=== PATIENT | female | born 1965 | race Caucasian/White ===

== ENCOUNTER 2023-08-06 19:53 | Outpatient (CLI) | payer OTHER, SELFPAY | END 2023-08-06 19:54 | disposition home or self-care (01) | LOC: NFLDUCREF 19:54 | PROVIDERS: Visit Provider Nurse Practitioner | DX: R39.15 Urgency of urination (principal) | CPT/HCPCS: 87086 ==

== ENCOUNTER 2024-09-15 15:07 | Emergency (ER) | payer OTHER, SELFPAY ==
--- OUTSIDE RECORDS SUMMARY | 2024-09-15 15:10 | XMS_ITS | Encounter Summary ---
[facility] Organization [facility] Address [address], [place] [address] Care Team Providers Care Patcher Name Role Phone Marilia Merrill MD Primary Care Provider [phone] Encounter Details Date Type Department Care Team (Latest Contact Info) Description 08/05/2024 Orders Only HIM DEPARTMENT ProviderFerdinand [place] [address] Social History Tobacco Use Types Packs/Day Years Used Date Smoking Tobacco: Never Smokeless Tobacco: Never Alcohol Use Standard Drinks/Week Comments Yes 0 (1 standard drink = 0.6 oz pur e alcohol) weekly [facility] Utilities Answer Date Recorded In the past 12 months has e Etacts, gas, oil, or water [place] threatened to shut off services in your home? No 07/13/2024 Humiliation, Afraid, Rape, and Kick questionnair e Answer Date Recorded Within the last year, have y ou been afraid of your partner or ex-partner? No 07/13/2024 Within the last year, have y ou been humiliated or emotionally abused in other ways by your partner or ex-partner? No Within the last year, have y ou been kicked, hit, slapped, or otherwise physically hurt by your partner or ex-partner? No 07/13/2024 Within the last year, have y ou been raped or forced to have any kind of sexual activity by your partner or ex-partner? No 07/13/2024 PHQ-2 Answer Date Recorded PHQ-2 Score 1 11/15/2022 Hunger Vital Sign Answer Date Recorded Within the past 12 months, y ou worried that your food would run out before you got the money to buy more. Never true 07/13/20 24 Within the past 12 months, t he food you bought just didn't last and you didn't have money to get more. Never true 07/13/2024 PRAPARE - Transportation Answer Date Re corded In the past 12 months, has l ack of transportation kept you from medical appointments or from getting medications? No 06/28 In the past 12 months, has l ack of transportation kept you from meetings, work, or from getting things needed for daily living? No 07/13/2024 Housing Stability Vital Sign Answer Tha e Recorded In the last 12 months, was t here a time when you were not able to pay the mortgage or rent on time? No 07/13/2024 In the past 12 months, how m any times have you moved where you were living? 1 07/13/2024 At any time in the past [address] [facility], were you homeless or living in a assisted (including now)? No 07/13/2024 Comments No Sex and Gender Information Value Date Recorded Sex Assigned at Not on file Legal Sex Female 5:05 AM CDT Gender Identity Not on file Sexual Orientation Not on file documented as of this encounter Plan of Treatment Upcoming Encounters Date Type Department Care Team (Late st Contact Info) Description 09/22/2024 8:40 AM COSTUME DRAPER Appointment [facility] [address] [place] [address] Pelon Lira MD [address] [facility] [place] [address] 09/23/2024 1:00 PM COSTUME DRAPER Appointment [facility] [address] [place] [address]. [place] [address] Nasima Early, CASH APPLICATION REPRESENTATIVE, PRODUCT MGMT DEV MANAGER [address] [place], [place] [id number] documented as of this encounter Goals Goal Patient Goal Type Associated Problems Recent Progress Patient-Stated? Author Right Knee Replacement Care Plan ET PROE RIGHT KNEE No Nila Sawyer documented as of this encounter Procedures Procedure Name Priority Date/Time Associated Diagnosis Comments PULMONARY TEST MI 08/05/2024 documented in this encounter Results * PULMONARY TEST MI (08/05/2024) us Interface Provider DUMMY/OTHER/AR Final Resu lt documented in this encounter Visit Diagnoses Not on filedocumented in this encounter Additional Health Concerns Active Problems Noted Date Diagnosed Date ET PROE RIGHT KNEE 01/14/2023 ET PROE SHELL PROBLEM TEMPLATE 05/27/2024 documented as of this encounter Care Teams Patcher Relationship Specialty Start Date End Date Marilia Merrill MD [address] [place] [address] PCP - General Family Practice 07/13/24 documented as of this encounter
--- OUTSIDE RECORDS SUMMARY | 2024-09-15 15:10 | XMS_ITS | Clinical Summary ---
Author Organization [facility] Address [address] [place] [address] Care Team Providers Care Supervisor Sintering Plant Name Role Phone Marilia Merrill MD Primary Care Provider Allergies Active Allergy Reactions Criticality Noted Date Comments Tetanus And Diphtheria Toxoids, Adsorbed, Adult Medium 01/08/2011 Severe pain and swelling for several weeks Medications cetirizine (ZYRTEC) 10 mg tabletIndication s:Allergic rhinitis, cause unspecified Take 1 tablet by mouth once daily if needed. 30 tablet 5 7 Active CPAPIndications: Obstructive sleep apnea CPAP machine for home use at pressure 5-20 cm, nasal mask x1/3month with nasal cushion x2/mo 1 Device 11 0 Active albuterol HFA (ProAir HFA) 90 mcg/actuation inhalerIndicatio ns:Asthma, unspecified asthma severity, unspecified whether complicated, unspecified whether persistent Inhale 1-2 Puffs by mouth every 4 hours if needed for Shortness of Breath 1st choice. 3 Each 1 4 Active lisinopriL (PRINIVIL; ZESTRIL) 10 mg tabletIndication s:HTN (hypertension) TAKE ONE TABLET BY MOUTH EVERY DAY 90 Tablet 3 4 Active CPAPIndications: HUI (obstructive sleep apnea) Travel Auto-CPAP machine for home use at pressure: 5-20 cm 1 Each 11 4 Active traZODone (DESYREL) 150 mg tabletIndication s:Insomnia, idiopathic Take 1 Tablet (150 mg) by mouth at bedtime. 90 Tablet 4 4 Active buPROPion (WELLBUTRIN XL) 300 mg Extended-Release tabletIndication s:Anxiety and depression Take 1 Tablet (300 mg) by mouth once daily in the morning. 90 Tablet 3 4 Active fluticasone (50 mcg per actuation) nasal solution (FLONASE)Indicat ions:Non-seasona l allergic rhinitis due to other allergic trigger Inhale 1 [place] in both nostrils once daily. 18.2 mL 5 4 Active Active Problems Problem Noted Date Diagnosed Date HUI (obstructive sleep apnea) 02/14/2017 Osteoarthritis of cervical spine 02/23/2014 Overview (02/23/2014): Bilateral facet joints - diffuse DDD (degenerative disc disease), cervical 2013 Overview (02/23/2014): C4-5 and C5-6 levels Sesamoiditis 08/10/2013 Other atopic dermatitis and related conditions 0 03/05/2007 Unspecified asthma(493.90) 03/05/2007 Insomnia, unspecified 03/05/2007 HTN (hypertension) Encounters Date Type Department Care Team Description 09/07/2024 Refill [facility] [address] [place] [address] Marilia Merrill MD Refill Request (Trazodone) 07/08/2024 7:25 AM TRAILHEAD CONSTRUCTION WORKER Preop Visit [facility] [address] [place] [address] Marilia Merrill MD Pre-Op Exam (07/13/24) 07/07/2024 Travel from Last 3 Months Immunizations Name Administration Dates Next Due COVID-19 vaccine (Moderna 100mcg/0.5mL) PF, MDV 10/19/2020,09/21/2020 Hepatitis A (Adult) 11/11/2020,09/25/2017 Influenza, IIV4 05/15/2023,05/11/2020 Influenza, IIV4 (=>6mos) MDV 05/17/2021 Td (Age >=7 Years) 07/11/1999 Typhoid (injectable) 11/11/2020 Zoster (Shingrix-RZV, recombinant) 11/11/2020, Family History Medical History Relation Name Comments Hypertension Father Kidney failure Father dialysis Other Father c diff Polycystic kidney disease Father Arthritis Mother rheumatoid Relation Name Status Comments Father Mother Social History Tobacco Use Types Packs/Day Years Used Date Smoking Tobacco: Never Smokeless Tobacco: Never Tobacco Cessation:Counseling Given: Not Answered Alcohol Use Standard Drinks/Week Comments Yes 0 (1 standard drink = 0.6 oz pur e alcohol) 1 glass wine 3-4 times weekly PHQ-2 Answer Date Recorded PHQ-2 TOTAL SCORE 2 08/16/2023 Social Connections Answer Date Recorded Do you often feel lonely or isolated from those around you? 0 08/16/2023 Financial Resource Strain Answer Date R ecorded Difficulty of Paying Living Expenses 3 08/16/2023 Difficulty of Paying Living Expenses Not on file 08/16/2023 Food Insecurity Answer Date Recorded Do you worry your food will run out before you are able to buy more? 1 08/16/2023 Transportation Needs Answer Date Record ed Does lack of transportation keep you from medica l appointments? 1 08/16/2023 Does lack of transportation keep you from work, meetings or getting things that you need? 1 08/16/2023 Housing Stability Answer Date Recorded What is your housing situation today? 1 08/16/2023 Utilities Answer Date Recorded Do you have trouble paying f or utilities (for example, heat, electricity, water, phone)? 1 08/16/2023 Comments No Sex and Gender Information Value Date Recorded Sex Assigned at Female 05/21/2020 12:53 PM CDT Legal Sex Female 6:11 AM TRAILHEAD CONSTRUCTION WORKER Gender Identity Female 05/21/2020 12:53 PM CDT Sexual Orientation Straight 05/21/2020 12 :57 PM CDT Occupation Industry Job Start Date Job End Date Teacher Not on file Not on file Not on file Obstetrics History Para Term AB IAB SAB Ectopic Multiple Livin g Live Births 2 2 2 Date Outcome GA Total Labor Labor/2nd/3rd Weight Sex Type Anes PTL Vika A1 A5 Name Clin Living Living Last Filed Vital Signs Vital Sign Reading Time Taken Comments Blood Pressure 102/60 07/08/2024 7:32 AM TRAILHEAD CONSTRUCTION WORKER Pulse 77 07/08/2024 7:32 AM TRAILHEAD CONSTRUCTION WORKER Temperature 36.3 C (97.4 F) 07/08/2024 7:32 AM TRAILHEAD CONSTRUCTION WORKER Respiratory Rate 16 02/10/2024 12:36 PM CDT Oxygen Saturation 98% 07/08/2024 7:32 AM TRAILHEAD CONSTRUCTION WORKER Inhaled Oxygen Concentration - - Weight 84.8 kg (187 lb) 07/08/2024 7:32 AM TRAILHEAD CONSTRUCTION WORKER Height 162.6 cm (5' 4) 07/08/2024 7:32 AM TRAILHEAD CONSTRUCTION WORKER Body Mass Index 32.1 07/08/2024 7:32 AM TRAILHEAD CONSTRUCTION WORKER Plan of Treatment Health Maintenance Due Date Last Done Comments HIV for age 15-65 1982 Hepatitis C screening for ag e 18-79 1985 Pneumococcal series for age 50+ (1 of 1 - PCV) 2017 Pap test for age 21-65 02/26/2019 6 (Completed outside of [facility]), 11/26/2009 Tetanus booster 01/08/2021 01/08/2011 (Decl ined), 07/11/1999 COVID-19 vaccine series ( season) 2024 05/15/2023, 10/19/2020, 09/21/2020 Influenza for age 50-64 03/29/2024 05/15/20 23, 05/17/2021, 05/11/2020 Depression screening for age 12+ 08/17/2024 08/17/2023, 08/16/2023, 02/01/2022, Additional history exists Mammogram for age 45-75 10/01/2024 10/02/19 24, 08/23/2022, 12/28/2015 (Completed outside of [facility]), Additional history exists Fecal testing non-DNA (FIT,FOBT,iFOBT) for age 45-75 10/06/2024 10/07/2023, 08/22/2021, 12/25/2018 BMI (ht and wt on same day) for age 18+ 07/08/2025 07/08/2024, 06/12/2024, 02/10/2024, Additional history exists Lipids for age 45-75 08/16/2028 08/16/2023, 10/24/2016, 01/19/2013, Additional history exists Zoster (shingles) series for age 50+ Completed 11/11/2020, 05/11/2020 Medical Devices Implanted Type Area Recreational Therapy Aide Device Identifier Shelf Expiration Date Model / Serial / Lot Bone Matrix 1cc Dbx Putty Dbm - [id number] Implanted:Qty : 1 on 05/18/2014 by Gabe Isabel MD at [facility] N/A: Cervical Vertebrae Musculoskeletal Transplant 02/13/2016 [id number]# / / [id number] - [id number] Implanted:Qty : 1 on 05/18/2014 by Gabe Isabel MD at [facility] N/A: Cervical Vertebrae 03/28/[id number] / / Description:8MM H X 16MM W X 14MM D MEDITECH SPINE, TALOS Mcsv-40-14 - [id number] Implanted:Qty : 4 on 05/18/2014 by Gabe Isabel MD at [facility] N/A: Cervical Vertebrae CSV-40-14 / / CSV-40-14 Description:14MM X 4.0 VARIA BLE BONE SCREWS MEDITECH [id number] - [id number] Implanted:Qty : 1 on 05/18/2014 by Gabe Isabel MD at [facility] N/A: Cervical Vertebrae [id number] / / [id number] Description:16MM PIRANNA CER VICAL PLATE MEDITECH Procedures Procedure Name Priority Date/Time Associated Diagnosis Comments CBC W PLT NO DIFF Routine 07/08/2024 7:5 2 AM TRAILHEAD CONSTRUCTION WORKER Pre-op evaluation BASIC METABOLIC PANEL Routine 07/08/2024 7:52 AM TRAILHEAD CONSTRUCTION WORKER Pre-op evaluation OCCULT BLOOD IFOBT STOOL Routine 10/07/2023 11:42 AM CDT Screening for colon cancer XR MAMMO MARGARITA BILAT SCREEN Routine 10/02/2023 4:33 PM TRAILHEAD CONSTRUCTION WORKER Visit for screening mammogram LIPID PANEL W REFLEX MEASURED LDL Routine 08/16/2023 8:14 AM TRAILHEAD CONSTRUCTION WORKER Screening for lipid disorders from Last 3 Months or Most Recently Relevant to Health Maintenance Results * CBC W PLT NO DIFF (07/08/2024 7:52 AM TRAILHEAD CONSTRUCTION WORKER) WHITE BLOOD CELL COUNT 8.3 3.8 - 10.8 Thousand/u L [facility] RED BLOOD CELL COUNT 4.34 3.80 - 5.10 Million/uL [facility] HEMOGLOBIN 12.4 11.7 - 15.5 g/dL [facility] HEMATOCRIT 37.9 35.0 - 45.0 % [facility] MCV 87.3 80.0 - 100.0 fL [facility] MCH 28.6 27.0 - 33.0 pg [facility] MCHC 32.7 32.0 - 36.0 g/dL [facility] Comment: For adults, a slight decrease in the calculated MCHC value (in the range of 30 to 32 g/dL) is most likely not clinically significant; however, it should be interpreted with caution in correlation with other red cell parameters and the patient's clinical condition. RDW 12.5 11.0 - 15.0 % [facility] PLATELET COUNT 336 140 - 400 Thousand/u L [facility] MPV 10.6 7.5 - 12.5 fL [facility] Blood BLOOD SPECIMEN / Unknown 07/08/2024 7:52 AM TRAILHEAD CONSTRUCTION WORKER 07/08/2024 7:53 AM TRAILHEAD CONSTRUCTION WORKER us Marilia Merrill MD HEMATOLOGY Final R esult [facility] [address] [place] [address], [facility] [address] [place] [address] * (ABNORMAL) BASIC METABOLIC PANEL (07/08/2024 7:52 AM TRAILHEAD CONSTRUCTION WORKER) Pathologist [facility] GLUCOSE 107(H) 65 - 99 mg/dL [facility] Comment: Fasting reference interval For someone without known diabetes, a glucose value between 100 and 125 mg/dL is consistent with prediabetes and should be confirmed with a follow-up test. UREA NITROGEN (BUN) 21 7 - 25 mg/dL [facility] CREATININE 0.89 0.50 - 1.03 mg/dL [facility] EGFR 76 > OR = 60 mL/min/1. 73m2 [facility] BUN/CREATININE RATIO SEE NOTE: 6 - 22 (calc) [facility] Comment: Not Reported: BUN and Creatinine are within reference range. SODIUM 139 135 - 146 mmol/L [facility] POTASSIUM 4.4 3.5 - 5.3 mmol/L [facility] CHLORIDE 101 98 - 110 mmol/L [facility] CARBON DIOXIDE 28 20 - 32 mmol/L [facility] ELECTROLYTE BALANCE 10 7 - 17 mmol/L (calc) [facility] CALCIUM 9.4 8.6 - 10.4 mg/dL [facility] Blood BLOOD SPECIMEN / Unknown 07/08/2024 7:52 AM TRAILHEAD CONSTRUCTION WORKER 07/08/2024 7:53 AM TRAILHEAD CONSTRUCTION WORKER Marilia Merrill MD CHEMISTRY Final R esult [facility] [address] [place] [address], [facility] [address] [place] [address] * OCCULT BLOOD IFOBT STOOL [[id number]] (10/07/2023 11:42 AM CDT) STOOL BLOOD ,IFOBT Negative Negative 10/11/2023 10:24 AM CDT [facility] Stool STOOL SPECIMEN / Unknown Non-Blood / Unknown 10/07/2023 11:42 AM CDT 10/10/2023 11:42 AM CDT Marilia Merrill MD LABORATORY Final R esult [facility] [address] [place] [address], [place] [phone] * XR MAMMO MARGARITA BILAT SCREEN (10/02/2023 4:33 PM TRAILHEAD CONSTRUCTION WORKER) Anatomical Region Laterality Modality BREASTS, Breast Left, Breast Right Bilateral Mammography Impressions 10/03/2023 3:11 PM TRAILHEAD CONSTRUCTION WORKER There is no radiographic evidence for malignancy. Recommend annual mammograms. MAMMOGRAM ASSESSMENT: ACR 1 Negative PATIENTS: You will also receive a letter with your examination results in an easy to read format. If you have questions about your results, please contact your referring provider. Narrative 10/03/2023 3:11 PM TRAILHEAD CONSTRUCTION WORKER For Patients: As a result of the Century Cures Act, medical imaging exams and procedure reports are released immediately into your electronic medical record. You may view this report before your referring provider. If you have questions, please contact your health care provider. XR MAMMO MARGARITA BILAT SCREEN [[id number]] CLINICAL HISTORY: This is an asymptomatic 58 y.o. patient. INDICATION FOR EXAM: Mammogram Screening. TECHNIQUE: CC & MLO views were obtained. This study was evaluated with the assistance of Computer-Aided Detection. Breast Tomosynthesis was used in interpretation. COMPARISON FILM: Priors not available at the time of this report. FINDINGS: The breasts are heterogeneously dense, which may obscure small masses. There are no dominant masses, suspicious micro calcifications or areas of architectural distortion. Marilia Merrill MD MAMMO Final R esult * LIPID PANEL W REFLEX MEASURED LDL [[id number]] (08/16/2023 8:14 AM TRAILHEAD CONSTRUCTION WORKER) CHOLESTEROL,TOTAL 195 100 - 199 mg/dL 08/16/2023 7:21 PM TRAILHEAD CONSTRUCTION WORKER [facility] Comment: Cholesterol, Total Reference Ranges Desirable <200 mg/dL Borderline 200-239 mg/dL High >=240 mg/dL TRIGLYCERIDES 64 <150 mg/dL 08/16/2023 7:21 PM TRAILHEAD CONSTRUCTION WORKER [facility] HDL CHOLESTEROL 81 >40 mg/dL 7:21 PM TRAILHEAD CONSTRUCTION WORKER [facility] NON-HDL CHOLESTEROL 114 <145 mg/dl 08/16/2023 7:21 PM TRAILHEAD CONSTRUCTION WORKER [facility] CHOL/HDL RATIO 2.41 <4.50 08/16/2023 7:21 PM TRAILHEAD CONSTRUCTION WORKER [facility] LDL CHOLESTEROL 101 <=130 mg/dL 08/16/2023 7:21 PM TRAILHEAD CONSTRUCTION WORKER [facility] VLDL CHOLESTEROL 13 <=30 mg/dL 08/16/2023 7:21 PM TRAILHEAD CONSTRUCTION WORKER [facility] PROVIDER ORDERED STATUS RANDOM 08/16/2023 7:21 PM [facility] Blood BLOOD SPECIMEN / Unknown Venipuncture / Unknown 08/16/2023 8:14 AM TRAILHEAD CONSTRUCTION WORKER 08/16/2023 8:26 AM TRAILHEAD CONSTRUCTION WORKER us Marilia Merrill MD CHEMISTRY Final R esult [facility] [address] [place] [id number], from Last 3 Months or Most Recently Relevant to Health Maintenance Insurance [place]ERT[place] [id number] Advance Directives * Full Code (Latest Code Status on File) Date Activated Date Inactivated Comments 05/18/2014 4:29 PM 05/19/2014 6:10 PM * Full Code Date Activated Date Inactivated Comments 05/18/2014 12:49 PM 05/18/2014 4:29 PM Care Teams Supervisor Sintering Plant Relationship Specialty Start Date End Date Marilia Merrill MD [address] [place] [address] PCP - General Family Practice 11/25/19
--- OUTSIDE RECORDS SUMMARY | 2024-09-15 15:10 | XMS_ITS | Encounter Summary ---
Author Organization [facility] Address [address], [place] [address] Care Team Providers Care Hobbing Press Operator Name Role Phone Marilia Merrill MD Primary Care Provider [phone] Encounter Details Date Type Department Care Team (Late st Contact Info) Description 11/12/2014 Orders Only [facility] [address] [place] [address] Donald Alvarez DPM [address] [facility] [place] [id number] Nonunion of joint fusion Social History Tobacco Use Types Packs/Day Years Used Date Smoking Tobacco: Never Assessed Comments Unknown Sex and Gender Information Value Date Recorded Sex Assigned at Not on file Legal Sex Female 5:05 AM CDT Gender Identity Not on file Sexual Orientation Not on file documented as of this encounter Plan of Treatment Upcoming Encounters Date Type Department Care Team (Late st Contact Info) Description 09/22/2024 8:40 AM FINANCIAL SPECIALIST Appointment [facility] [address] [place] [address] Pelon Lira MD [address] [facility] [address] [place] [id number] 09/23/2024 1:00 PM FINANCIAL SPECIALIST Appointment Special[facility] [address] [facility] [place], [place] [id number] Nasima Early, APPRENTICE STYLIST, CLAM DIGGER [address] [place] [address] documented as of this encounter Visit Diagnoses Diagnosis Nonunion of joint fusion documented in this encounter Care Teams Hobbing Press Operator Relationship Specialty Start Date End Date Marilia Merrill MD [address] [place] [address] PCP - General Family Practice 07/13/24 documented as of this encounter
--- OUTSIDE RECORDS SUMMARY | 2024-09-15 15:10 | XMS_ITS | Encounter Summary ---
[facility] Address [address] [address] Care Team Providers Care Rate Marker Name Role Phone Marilia Merrill MD Primary Care Provider [phone] Reason for Visit * Reason Comments Follow-up INSPIRE Encounter Details Date Type Department Care Team (Late st Contact Info) Description 08/05/2024 11:00 AM ROOFING LAYER Office Visit [facility] [address] [place] [address]. [place], [place] [id number] Nasima Early, BUNDLE SHAKER, FILLING OPERATOR [address] [place] [address] HUI (obstructive sleep apnea) (Primary Dx); S/P insertion of hypoglossal nerve stimulator Social History Tobacco Use Types Packs/Day Years Used Date Smoking Tobacco: Never Smokeless Tobacco: Never Alcohol Use Standard Drinks/Week Comments Yes 0 (1 standard drink = 0.6 oz pur e alcohol) weekly [facility] Utilities Answer Date Recorded In the past 12 months has e electric, gas, oil, or water [employer] threatened to shut off services in your [...] any time in the past 12 m [facility], were you homeless or living in a residential (including now)? No 07/13/2024 Comments No Sex and Gender Information Value Date Recorded Sex Assigned at Not on file Legal Sex Female 5:05 AM CDT Gender Identity Not on file Sexual Orientation Not on file documented as of this encounter Last Filed Vital Signs Vital Sign Reading Time Taken Comments Blood Pressure - - Pulse 68 08/05/2024 10:52 AM ROOFING LAYER Temperature 36.4 C (97.6 F) 08/05/2024 10:52 AM ROOFING LAYER Respiratory Rate - - Oxygen Saturation 97% 08/05/2024 10:52 AM ROOFING LAYER Inhaled Oxygen Concentration - - Weight - - Height 165.1 cm (5' 5) 08/05/2024 10:52 AM ROOFING LAYER Body Mass Index - - documented in this encounter Patient Instructions * Patient Instructions* Nasima Early APRN, CNP - 08/05/2024 11:00 AM ROOFING LAYER Use INSPIRE nightly all night. Start at level 2 tonight. If needed can go down for few days and then go up again. Remote- 0.6-1.6. go up weekly if you can Evisit 2 weeks to check in. Then will see you back in 6-8 weeks for interrogation of device Nasima Early APRN, CNP ING LAYER ING LAYER documented in this encounter Progress Notes * Nasima Early APRN, CNP - 08/05/2024 11:00 AM CST CHIEF COMPLAINT: Deann Bajwa is a 59 y.o. old female who here for activation of INSPIRE therapy to treat sleep apnea. S: HISTORY OF THE PRESENT ILLNESS: Pt new to me. Here for activation of hypoglossal nerve stimulator as alt to treat sleep apnea. Here with her friend as she not able to drive, following knee surgery. Pt new to me. HTN, asthma, other atopic dermatitis hx of long standing sleep apnea, snoring. She believes she has moderate sleep apnea. She has been using CPAP since then but has really struggled with it the last few years. She does seem to fall asleep with it initially but it will wake her up in the middle of the night. She finds it uncomfortable in the mask may have moved around her face. She then has difficulty getting back to sleep if she keeps it on and adjusts it. Had septoplasty in past. Currently using, does not want to wear anymore, and could not get mask to fit right, and lines on her face. Inspire implant placed 06/17/[address] Ramos. No complaints of swallowing, talking, or tongue discomfort. Ess today 04/21. Been wearing her PAP machine. Patient Active Problem List Diagnosis HTN (hypertension) (HRC) HUI (obstructive sleep apnea) Other atopic dermatitis and related conditions Asthma (HRC) Primary osteoarthritis of right knee Failed total knee arthroplasty (HRC) Insomnia, unspecified DDD (degenerative disc disease), cervical (HRC) Status post revision of total knee, right S/P revision of total knee, right MEDS: Current Outpatient Medications Medication Sig Dispense Refill acetaminophen (TYLENOL) 500 MG tablet Take 2 Tablets (1,000 mg) by mouth three times a day. 24 hourlimit of acetaminophen (TYLENOL) is 4000mg. Indications: Pain 100 Tablet 0 ALBUterol sulfate HFA 108 (90 BASE) MCG/ACT inhaler Inhale 2 Puffs every 6 hours as needed for Wheezing (Inhale 2 puffs every 6 hours as needed for Wheezing.). aspirin EC 81 MG enteric coated tablet Take 2 Tablets (162 mg) by mouth daily for 42 days. If on previous aspirin, resume previous aspirin dosing after 42 days. Indications: thrombosis prevention following orthopedic surgery 84 Tablet 0 buPROPion (WELLBUTRIN XL) 300 MG 24 hour release tablet Take 1 Tablet (300 mg) by mouth daily. lisinopril (ZESTRIL) 10 MG tablet Take 1 Tablet (10 mg) by mouth daily. Check your blood pressure prior to taking. Hold medication for systolic (top number) under 130. oxyCODONE (ROXICODONE) 5 MG immediate release tablet Take 1-2 Tablets (5-10 mg) by mouth every 4 hours as needed for Pain. Take 1 tablet for pain rated at 4-7. Take 2 tablets for pain rated 8-10. Indications: Moderate to Moderately Severe Pain 25 Tablet 0 senna (SENOKOT) 8.6 MG tablet Take 2 Tablets by mouth daily at bedtime. Take while on narcotics. Hold for loose stools. Indications: Constipation 60 Tablet 0 traZODone (DESYREL) 150 MG tablet Take 1 Tablet (150 mg) by mouth daily at bedtime. No current facility-administered medications for this visit. O: Results of vital signs today have been reviewed. Pulse 68 Temp 97.6 ??F (36.4 ??C) (Tympanic) Ht 5' 5 (1.651 m) SpO2 97% BMI 31.02 kg/m?? General: NAD, alert and oriented. Pt ambulating on crutches 08/05/2024 Incision Check: All two incisions were inspected. No evidence of infection. Functional Tongue Exam: Normal tongue motion. No evidence of tongue deviation, weakness, atrophy, hypertrophy or fasciculations. No difficulty with swallowing or speech. Home Sleep Test (HST) Interpretation Date of Interpretation: 01/25/2024 BMI: Estimated body mass index is 29.12 kg/m?? as calculated from the following: Height as of this encounter: 5' 5 (1.651 m). Weight as of this encounter: 175 lb (79.4 kg). [place] Score: Neck Circumference: Device Name/Type: Carefusion NOX-T3 (Type III) Hypopnea Definition:AASM Rule: 1A Technical Quality: 96 % This home sleep test was performed as a/an Diagnostic study (unknown) a sleep partner in bed. The total recording time was 505.1 minutes. Snoring was reported as moderately loud, continuous Respiratory Events: Obstructive Apneas: 288 Central Apneas: 16 Mixed Apneas: 2 Hypopneas: 129 Overall RDI: 51.7 Non-Supine RDI: Supine RDI: 78.2 Oxygen Desaturations: Lowest O2 saturation was 84 % Total Sleep Time SpO2 was </= 88% was 28.7 minutes. Positional Data: % Time Supine: 34.6 % % Time Non-Supine: 65.4 % EKG: No significant cardiac arrhythmias were noted Impression: This study indicates severe obstructive sleep apnea. Recommendations: Consider a trial of Auto CPAP or a formal titration study to establish effectiveness of PAP therapy. Would suggest optimizing sleep hygiene measures, especially avoiding alcohol and sedatives. Avoiding sleep deprivation would also be beneficial. The patient should avoid dangers of driving while excessively drowsy. Weight management if indicated. I attest that I have conducted an epoch by epoch review of all of the raw data for this sleep study. A/P #1 Severe obstructive sleep apnea ( ahi-51.7). #2 BMI 31, obesity #3 hypoglossal nerve stimulator. #4 knee discomfort, s/p knee surgery Pt been treating apnea, with PAP therapy. Activated INSPIRE therapy today. Inspire therapy how works and what to expect outlined for her today. Sensation Threshold (ST): 0.6 volts Functional Threshold (FT): 0.7 volts Tongue Motion Phenotype at FT: Bilateral Protrusion (BP) Final Amplitude: 0.7 volts Patient Control Lower Limit: 0.6 volts Patient Control Upper Limit: 1.6 volts Sensor Waveform: The sensor waveform showed both upward and downward deflections associated with the patient's breathing pattern. Other Programming: A, 90/33 30 min start, 15 min pause, 9 sleep time Patient Instructions: 1. The patient was given an Inspire sleep remote and a patient manual. 2. The patient was educated on proper use of the patient sleep remote. The patient demonstrated competency with the remote and was given a quick guide and access to an instructional video. 3. The patient was instructed to use Inspire all-night, every-night. 4. The patient was instructed to increase stimulation amplitude 1 step (0.1 volts) every week untilreaching the maximum level or until stimulation becomes uncomfortable. 5. If stimulation becomes uncomfortable, the patient was instructed to decrease the stimulation amplitude and try increasing it again in 2-3 nights. Answered questions, pamphlet and literature has been given to her. Good sleep habits. See AVS for additional patient instructions reviewed during visit. RTC in 6-8 weeks, to interrogate device. Will do check in in approx 2 weeks via evisit Spent 90 min gathering data, activating INSPIRE, education and coordinating cares. Nasima Early APRN, CNP ING LAYER documented in this encounter Plan of Treatment Upcoming Encounters Date Type Department Care Team (Late st Contact Info) Description 09/22/2024 8:40 AM ROOFING LAYER Appointment [facility] [address] [place] [address] Pelon Lira MD [address] [place] [address] 09/23/2024 1:00 PM ROOFING LAYER [facility]ment [facility] [address] [place] [address]. [place], [place] [phone] Nasima Early APRN, CNP [address] [place] [id number] documented as of this encounter Goals Goal Patient Goal Type Associated Problems Recent Progress Patient-Stated? Author Right Knee Replacement Care Plan ET PROE RIGHT KNEE No Nila Sawyer documented as of this encounter Visit Diagnoses Diagnosis HUI (obstructive sleep apnea)- Primary Obstructive sleep apnea (adult) (pediatric) S/P insertion of hypoglossal nerve stimulator documented in this encounter Additional Health Concerns Active Problems Noted Date Diagnosed Date ET PROE RIGHT KNEE 01/14/2023 ET PROE SHELL PROBLEM TEMPLATE 05/27/2024 documented as of this encounter Care Teams Rate Marker Relationship Specialty Start Date End Date Marilia Merrill MD [address] [place] [address] PCP - General Family Practice 07/13/24 documented as of this encounter
--- OUTSIDE RECORDS SUMMARY | 2024-09-15 15:10 | XMS_ITS | Encounter Summary ---
Author Organization [facility] Address [address], [place] [address] Care Team Providers Care Patent Clerk Name Role Phone Marilia Merrill MD Primary Care Provider [phone] Encounter Details Date Type Department Care Team (Late st Contact Info) Description 11/03/2015 Notes/Orders [facility] [address] [place] [id number] Donald Alvarez DPM [address] [facility] [place] [id number] Social History Tobacco Use Types Packs/Day Years [...] st Contact Info) Description 09/22/2024 8:40 AM GOLF CART REPAIRER Appointment [facility] [address] [place] [address] Pelon Lira MD [address] [facility] [place] [id number] 09/23/2024 1:00 PM GOLF CART REPAIRER [facility] [address] [place] [address]. [place], [place] [phone] Nasima Early, BUSINESS SUPPORT, GUIDE DOG INSTRUCTOR [address] [place] [address] documented as of this encounter Visit Diagnoses Not on filedocumented in this encounter Care Teams Patent Clerk Relationship Specialty Start Date End Date Marilia Merrill MD [address] [place] [address] PCP - General Family Practice 07/13/24 documented as of this encounter
--- OUTSIDE RECORDS SUMMARY | 2024-09-15 15:10 | XMS_ITS | Encounter Summary ---
Author Organization [facility] Address [address], [place] [address] Care Team Providers Care Manager Practice Name Role Phone Marilia Merrill MD Primary Care Provider [phone] Encounter Details Date Type Department Care Team (Late st Contact Info) Description 11/10/2015 Orders Only [facility] [address] [place] [id number] Donald Alvarez DPM [address] [facility] [place] [id number] Social History Tobacco Use Types Packs/Day Years [...] st Contact Info) Description 09/22/2024 8:40 AM LINEMAN Appointment [facility] [address] [place] [address] Pelon Lira MD [address] [facility] [place] [id number] 09/23/2024 1:00 PM LINEMAN [facility]ment [facility] [address] [facility] [place] [address] Nasima Early, ADVERTISING PRODUCTION MANAGER, MARKETING INTERN [address] [place] [address] documented as of this encounter Visit Diagnoses Not on filedocumented in this encounter Care Teams Manager Practice Relationship Specialty Start Date End Date Marilia Merrill MD [address] [place] [address] PCP - General Family Practice 07/13/24 documented as of this encounter
--- OUTSIDE RECORDS SUMMARY | 2024-09-15 15:10 | XMS_ITS | Clinical Summary ---
Author Organization [facility] Address [address], [place] [address] Care Team Providers Care Health Information Technician Name Role Phone Marilia Merrill MD Primary Care Provider [phone] Source Comments You are receiving this document as you are listed as the primary care provider,follow-up provider, or the patient has been referred to you for consultation.This is in compliance with the Medicare and[facility] E[facility] Incentive Program,which states Providers who transition their patient to another setting of careor provider of care or refers their patient to another provider of care shouldprovide summary care record for each transition of care or referral. [employer] Allergies Active Allergy Reactions Criticality Noted Date Comments Chlorhexidine Itching 11/30/2022 Tetanus Toxoids 03/12/2014 PN: Left arm and side weak and painful for 3 days after injection Medications ALBUterol sulfate HFA 108 (90 BASE) MCG/ACT inhaler Inhale 2 Puffs every 6 hours as needed for Wheezing (Inhale 2 puffs every 6 hours as needed for Wheezing.). 5 Active buPROPion (WELLBUTRIN XL) 300 MG 24 hour release tablet Take 1 Tablet (300 mg) by mouth daily. Active traZODone (DESYREL) 150 MG tablet Take 1 Tablet (150 mg) by mouth daily at bedtime. Active lisinopril (ZESTRIL) 10 MG tablet Take 1 Tablet (10 mg) by mouth daily. Check your blood pressure prior to taking. Hold medication for systolic (top number) under 130. 4 Active acetaminophen (TYLENOL) 500 MG tabletIndicati ons:Pain Take 2 Tablets (1,000 mg) by mouth three times a day. 24 hour limit of acetaminophen (TYLENOL) is 4000mg. Indications: Pain 100 Tablet 07/14/2024 2:09 PM SOUND DESIGNER 4 Active senna (SENOKOT) 8.6 MG tabletIndicati ons:Constipati on Take 2 Tablets by mouth daily at bedtime. Take while on narcotics. Hold for loose stools. Indications: Constipation 60 Tablet 07/14/2024 2:09 PM SOUND DESIGNER 4 Active oxyCODONE (ROXICODONE) 5 MG immediate release tabletIndicati ons:Moderate to Moderately Severe Pain Take 1-2 Tablets (5-10 mg) by mouth every 4 hours as needed for Pain. Take 1 tablet for pain rated at 4-7. Take 2 tablets for pain rated 8-10. Indications: Moderate to Moderately Severe Pain 25 Tablet 5 Active aspirin EC 81 MG enteric coated tabletIndicati ons:thrombosis prevention following orthopedic surgery Take 2 Tablets (162 mg) by mouth daily for 42 days. If on previous aspirin, resume previous aspirin dosing after 42 days. 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 Alvarez 01/14/2023 Failed total knee arthroplasty 01/10/2023 Overview (01/10/2023): Added automatically from request for surgery [id number] Primary osteoarthritis of right knee 11/16/2022 Overview (11/16/2022): Added automatically from request for surgery [id number] HTN (hypertension) 11/13/2022 HUI (obstructive sleep apnea) 02/14/2017 DDD (degenerative disc disease), cervical 2013 Overview (01/10/2023): C4-5 and C5-6 levels Other atopic dermatitis and related conditions 0 03/05/2007 Asthma 03/05/2007 Insomnia, unspecified 03/05/2007 Encounters Date Type Department Care Team Description 08/25/2024 E-Visit [address] [address] Mychart, Generic Provider 08/12/2024 E-Visit [facility] [place] [address] [facility] [address] [place] [address]. [place] [address] Nasima Early, RADIATION THERAPIST, INBOUND CUSTOMER SERVICE AGENT Chief Comp: QUESTIONS, GENERAL 08/11/2024 8:50 AM SOUND DESIGNER Ancillary Procedure [facility] [address] [place] [address] Pelon Lira MD S/P revision of total knee, right 08/11/2024 8:40 AM SOUND DESIGNER Office Visit [address] [address] Pelon Lira MD S/P revision of total knee, right (Primary Dx) 08/05/2024 11:00 AM SOUND DESIGNER Office Visit [facility] [place] [address] [facility] [address] [place] [address]. [place] [address] Nasima Early, RADIATION THERAPIST, INBOUND CUSTOMER SERVICE AGENT HUI (obstructive sleep apnea) (Primary Dx); S/P insertion of hypoglossal nerve stimulator 08/05/2024 Orders Only HIM DEPARTMENT ProviderFerdinand MD 08/05/2024 Orders Only HIM DEPARTMENT Provider, MD Ferdinand 07/31/2024 3:30 PM SOUND DESIGNER Office Visit [address] [address] Nurse, [facility] S/P revision of total knee, right (Primary Dx) 07/31/[address] [address] Pelon Lira MD Refill 07/26/2024 [facility] [address] [place] [address] 07/26/2024 sachi Wilson [address] [place] [address] 07/20/[address] [address] Pelon Lira MD Refill 07/13/2024 7:48 AM SOUND DESIGNER Anesthesia Event [facility] [address] [place] [address] Rosie Romeo MD 07/13/2024 7:15 AM SOUND DESIGNER - 07/13/2024 11:05 AM SOUND DESIGNER Surgery [facility] [address] [place] [address] Pelon Lira MD REVISION TOTAL JOINT REPLACEMENT KNEE 07/13/2024 6:05 AM SOUND DESIGNER - 07/14/2024 2:42 PM SOUND DESIGNER Hospital Encounter [facility] [address] [place] [address]. [place] [address] Pelon Lira MD S/P revision of total knee, right (Primary Dx); Pain; Status post revision of total knee, right Discharge Disposition: Home 07/13/2024 Orders Only HIM DEPARTMENT Provider, MD Ferdinand 07/09/2024 Orders Only HIM DEPARTMENT Provider, Ferdinand, 07/06/[address] [address] Pelon Lira MD Surgery Questions 07/06/[address] [address] Pelon Lira MD Reschedule Appointment; Appt. Work In Request 07/03/2024 Orders Only [address] [address] Pelon Lira MD 06/29/2024 4:00 PM SOUND DESIGNER Office Visit [facility] [address] [facility]. [place], [place] [id number] Lesvia Packer PA-C HUI (obstructive sleep apnea) (Primary Dx); Postoperative examination 06/22/2024 Telephone [facility]ty [facility] [address] Ot[facility]aryngology [address] [place] [address] Shyam Ramos MD Appt. Needed (Pulmonary?) 06/17/2024 10:46 AM SOUND DESIGNER Anesthesia Event [facility] Surgery [address] [address] Edy Lopez MD Harvey, Laura A, APRN, STATE'S ATTORNEY 06/17/2024 10:45 AM SOUND DESIGNER - 06/17/2024 2:20 PM SOUND DESIGNER Surgery [facility] Surgery [address] [address] Shyam Ramos MD INSERTION/PLACEMENT HYPOGLOSSAL NERVE STIMULATOR 06/17/2024 8:41 AM SOUND DESIGNER - 06/17/2024 6:49 PM SOUND DESIGNER Hospital Encounter [address] [address] Shyam Ramos MD Pain (Primary Dx) Discharge Disposition: Home 06/17/2024 Orders Only HIM DEPARTMENT Provider, MD Ferdinand from Last 3 Months Immunizations Immunization Administration Dates Next Due Fluzone Qiv Multidose Vial 0.25 (6-35 Mos) 05/17 HepA Adult (19+ yrs) 11/11/2020,09/25/2017 Influenza IIV4 (Quadrivalent) 0.5mL (21868) 04/28 Moderna Monovalent 12+ 10/19/2020,09/21/2020 Td 07/11/1999 Typhoid (Typhim Vi, IM) 11/11/2020 Zoster RZV (Shingrix) 11/11/2020,05/11/2020 Family History Medical History Relation Name Comments Hypertension Father Tres Kidney/Bladder Disease Father Tres on di alysis Relation Name Status Comments Father Tres Social History Tobacco Use Types Packs/Day Years Used Date Smoking Tobacco: Never Smokeless Tobacco: Never Tobacco Cessation:Counseling Given: Not Answered Alcohol Use Standard Drinks/Week Comments Yes 0 (1 standard drink = 0.6 oz pur e alcohol) weekly [facility] Utilities Answer Date Recorded In the past 12 months has th e [employer], gas, oil, or water [employer] threatened to shut off services in your [...] any time in the past 12 m [facility], were you homeless or living in a care home (including now)? No 07/13/2024 Comments No Sex and Gender Information Value Date Recorded Sex Assigned at Not on file Legal Sex Female 5:05 AM CDT Gender Identity Not on file Sexual Orientation Not on file Last Filed Vital Signs Vital Sign Reading Time Taken Comments Blood Pressure 100/67 07/14/2024 2:05 PM SOUND DESIGNER Pulse 68 08/05/2024 10:52 AM SOUND DESIGNER Temperature 36.4 C (97.6 F) 08/05/2024 10:52 AM SOUND DESIGNER Respiratory Rate 17 07/14/2024 2:05 PM SOUND DESIGNER Oxygen Saturation 97% 08/05/2024 10:52 AM SOUND DESIGNER Inhaled Oxygen Concentration - - Weight 84.6 kg (186 lb 6.4 oz) 07/13/2024 6:30 A M SOUND DESIGNER Height 165.1 cm (5' 5) 08/05/2024 10:52 AM SOUND DESIGNER Body Mass Index 32 06/17/2024 8:51 AM SOUND DESIGNER Plan of Treatment Upcoming Encounters Date Type Department Care Team (Late st Contact Info) Description 09/22/2024 8:40 AM SOUND DESIGNER Appointment [facility] [address] [place] [address] Pelon Lira MD [address] [facility] [place] [id number] 09/23/2024 1:00 PM SOUND DESIGNER Appointment [facility] [address] [place] [address] Nasima Early, RADIATION THERAPIST, INBOUND CUSTOMER SERVICE AGENT [address] [place] [address] Health Maintenance Due Date Last Done Comments Colon Cancer Screening Plan Due 1967 Hep C Screening (Preventive Services) 1967 HIV Screening (Preventive Services) 1983 Adult Preventive Visit 1985 HepB (1) 1986 Pneumococcal 50+ Yrs (1 of 2 - PCV) 1986 DTaP/Tdap/Td (1 - Tdap) 07/12/1999 07/11/1999 Cholesterol 2012 Cervical Cancer Screening Due 06/17/2012 06/16/2012 COVID-19 Vaccine ( season) 2024 05/15/2023, 10/19/2020, 09/21/2020 Influenza (#1) 2024 05/15/2023, 04/29, 05/11/2020 Mammogram 10/01/2024 10/02/2023, 07/30, 08/23/2022, Additional history exists Diabetes Screening- (based on age and BMI) 07/13/2027 07/13/2024, 01/14/2023, 02/01/2022 HepA Completed 11/11/2020, 09/25/2017 Zoster/Shingles Completed 11/11/2020, 05/11/2020 Hib Aged Out No longer eligi ble based on patient's age to complete this topic IPV (Polio) Aged Out No longer eligi ble based on patient's age to complete this topic MCV4 Aged Out No longer eligi ble based on patient's age to complete this topic Meningococcal B Aged Out No longer el igible based on patient's age to complete this topic Goals Goal Patient Goal Type Associated Problems Recent Progress Patient-Stated? Author Right Knee Replacement Care Plan ET PROE RIGHT KNEE No [employer] Implanted Type Area Dietitian Device Identifier Shelf Expiration Date Model / Serial / Lot Tommie Bone Biomet R 1x40 - [id number] Implanted:Qty: 1 on 11/30/2022 by Shobha Alvarez MD at [facility] DEVICE Right: KNEE [employer] 03/28/2025 [id number] / 0 / [id number] Description:500 mg vancomyci n added [id number] - [id number] Implanted:Qty: 1 on 11/30/2022 by Shobha Alvarez MD at [facility] DEVICE Right: KNEE [employer] 07/24/2032 [id number] / 0 / [id number] Description:Persona cruciate retaining right size 6 PPS porous plasma spray narrow femr Rstrct Cmnt Med Unv - [id number] Implanted:Qty: 1 on 01/14/2023 by Shobha Alvarez MD at [facility] DEVICE Right: KNEE [place] 08/13/2027 [id number] / / [id number] Psn Rev Fem Cmt Ccr Pls Sz7 Rt - [id number] Implanted:Qty: 1 on 01/14/2023 by Shobha Alvarez MD at [facility] DEVICE Right: KNEE [employer] - Orthopedics 07/04/2032 [id number] / / [id number] Psn Rev Tib Fx Keel Cmt Szc Rt - [id number] Implanted:Qty: 1 on 01/14/2023 by Shobha Alvarez MD at [facility] DEVICE Right: KNEE [employer] 08/20/2032 [id number] / / [id number] Comp Str Hyb St 14x+30 - [id number] Implanted:Qty: 1 on 01/14/2023 by Shobha Alvarez MD at [facility] DEVICE Right: KNEE [employer] 12/11/2032 [id number] / / [id number] Comp Str Hyb St 14x+30 - [id number] Implanted:Qty: 1 on 01/14/2023 by Shobha Alvarez MD at [facility] DEVICE Right: KNEE [employer] 11/19/2032 [id number] / / [id number] Asf Ps Ve 12mm 69 Cd Rt - [id number] Implanted:Qty: 1 on 01/14/2023 by Shobha Alvarez MD at [facility] DEVICE Right: KNEE [employer] 09/21/2025 [id number] / / [id number] Tommie Bone Biomet R 1x40 - [id number] Implanted:Qty: 1 on 01/14/2023 by Shobha Alvarez MD at [facility] DEVICE Right: KNEE [employer] 01/25/2025 [id number] / / [id number] Tommie Bone Biomet R 1x40 - [id number] Implanted:Qty: 1 on 01/14/2023 by Shobha Alvarez MD at [facility] DEVICE Right: KNEE [employer] 05/28/2025 [id number] / / [id number] Tommie Bone Biomet R 1x40 - [id number] Implanted:Qty: 1 on 01/14/2023 by Shobha Alvarez MD at [facility] DEVICE Right: KNEE [employer] 05/28/2025 [id number] / / [id number] Rstrct Cmnt Med Unv - [id number] Implanted:Qty: 1 on 01/14/2023 by Shobha Alvarez MD at [facility] DEVICE Right: KNEE [place] 08/03/2027 [id number] / / [id number] Ld Stimulation Inspire - [id number] Implanted:Qty: 1 on 06/17/2024 by Shyam Ramos MD at [facility] DEVICE Right: NECK Inspire Med 10/27/2026 4063 / [id number] / Generator Pulse Inspire Iv Ipg - [id number] Implanted:Qty: 1 on 06/17/2024 by Shyam Ramos MD at [facility] DEVICE Right: CHEST Insp[employer] Med 12/25/2026 3028 / [id number] / Ld Stim - [id number] Implanted:Qty: 1 on 06/17/2024 by Shyam Ramos MD at [facility] DEVICE Right: CHEST Insp[employer] Med 02/03/2027 4340 / [id number] / Tommie Bone Biomet R 1x40 - [id number] Implanted:Qty: 1 on 07/13/2024 by Pelon Lira MD at [facility] DEVICE Right: KNEE [employer] 09/25/2026 [id number] / / [id number] Tommie Bone Biomet R 1x40 - [id number] Implanted:Qty: 1 on 07/13/2024 by Pelon Lira MD at [facility] DEVICE Right: KNEE [employer] 09/25/2026 [id number] / / [id number] Attune Fem Dist Aug Sz4 4mm - [id number] Implanted:Qty: 1 on 07/13/2024 by Pelon Lira MD at [facility] DEVICE Right: KNEE [employer] - Joint Recon 02/25/2034 1547-04-001 / / [id number] Attune Fem Crs Rt Sz4 - [id number] Implanted:Qty: 1 on 07/13/2024 by Pelon Lira MD at [facility] DEVICE Right: KNEE [employer] - Joint Recon 12/26/2033 1504-40-204 / / [id number] Sleeve Tib M/L 29mm - [id number] Implanted:Qty: 1 on 07/13/2024 by Pelon Lira MD at [facility] DEVICE Right: KNEE [employer] - Joint Recon 07/28/2032 1511-11-201 / / [id number] Prs Fit Str Stem 14x60 - [id number] Implanted:Qty: 1 on 07/13/2024 by Pelon Lira MD at [facility] DEVICE Right: KNEE [employer] - Joint Recon 01/25/2034 1513-14-060 / / [id number] Base Tib Attune Rev Sz2 - [id number] Implanted:Qty: 1 on 07/13/2024 by Pelon Lira MD at [facility] DEVICE Right: KNEE UNKNOWN 05/28/2032 [id number] / / [id number] Attune Fem Dist Aug Sz4 4mm - [id number] Implanted:Qty: 1 on 07/13/2024 by Pelon Lira MD at [facility] DEVICE Right: KNEE [employer] - Joint Recon 02/25/2034 1547-04-001 / / [id number] Stem 12mm X 60mm Implanted:Qty: 1 on 07/13/2024 by Pelon Lira MD at [facility] Right: KNEE 11/25/2029 1513-12-060 / / [id number] Tibial Plateform Size 4 X 20mm Implanted:Qty: 1 on 07/13/2024 by Pelon Lira MD at [facility] Right: KNEE 09/25/2030 1516-50-420 / / [id number] Revision Femoral Sleeve 30mm Implanted:Qty: 1 on 07/13/2024 by Pelon Lira MD at [facility] Right: KNEE 05/28/2034 151- / / [id number] Explanted Type Area Dietitian Device Identifier Shelf Expiration Date Model / Serial / Lot Patella All Poly Ply 32mm - [id number] Implanted:Qty: 1 on 11/30/2022 by Shobha Alvarez MD at [facility] Explanted:Qty: 1 on 01/14/2023 by Shobha Alvarez MD at [facility] DEVICE Right: KNEE [employer] 10/17/2027 [id number] / 0 / [id number] Psn Mc Ve Asf 14mm Sz6-7 Rt - [id number] Implanted:Qty: 1 on 11/30/2022 by Shobha Alvarez MD at [facility] Explanted:Qty: 1 on 01/14/2023 by Shobha Alvarez MD at [facility] DEVICE Right: KNEE [employer] 10/29/2025 [id number] / 0 / [id number] Comp Tib Por 2 Peg [facility] Rt - [id number] Implanted:Qty: 1 on 11/30/2022 by Shobha lAvarez MD at [facility] Explanted:Qty: 1 on 01/14/2023 by Shobha Alvarez MD at [facility] DEVICE Right: KNEE [employer] 05/28/2027 [id number] / 0 / [id number] Procedures Procedure Name Priority Date/Time Associated Diagnosis Comments XR KNEE RT 3 VIEWS Routine 08/11/2024 8: 57 AM SOUND DESIGNER S/P revision of total knee, right PULMONARY TEST SC 08/05/2024 PFT 08/05/2024 HEMOGLOBIN, BLOOD Routine 07/14/2024 7:4 6 AM SOUND DESIGNER XR KNEE RT 2 VIEWS STAT 07/13/2024 12 :20 PM SOUND DESIGNER XR KNEE RT 2 VIEWS Routine 07/13/2024 11 :00 AM SOUND DESIGNER AFB CULTURE Routine 07/13/2024 8:53 AM SOUND DESIGNER S/P revision of total knee, right ANAEROBIC CULTURE EXTENDED INCUBATION 14 DAYS Routine 07/13/2024 8:53 AM SOUND DESIGNER S/P revision of total knee, right AEROBIC CULTURE EXTENDED INCUBATION 14 DAYS Routine 07/13/2024 8:53 AM SOUND DESIGNER S/P revision of total knee, right AFB CULTURE Routine 07/13/2024 8:53 AM SOUND DESIGNER S/P revision of total knee, right EXTENDED AEROBIC/ANAEROBIC CULTURE PANEL Routine 07/13/2024 8:53 AM SOUND DESIGNER S/P revision of total knee, right FUNGUS CULTURE Routine 07/13/2024 8:53 AM SOUND DESIGNER S/P revision of total knee, right AFB CULTURE Routine 07/13/2024 8:40 AM SOUND DESIGNER S/P revision of total knee, right ANAEROBIC CULTURE EXTENDED INCUBATION 14 DAYS Routine 07/13/2024 8:40 AM SOUND DESIGNER S/P revision of total knee, right AEROBIC CULTURE EXTENDED INCUBATION 14 DAYS Routine 07/13/2024 8:40 AM SOUND DESIGNER S/P revision of total knee, right AFB CULTURE Routine 07/13/2024 8:40 AM SOUND DESIGNER S/P revision of total knee, right EXTENDED AEROBIC/ANAEROBIC CULTURE PANEL Routine 07/13/2024 8:40 AM SOUND DESIGNER S/P revision of total knee, right FUNGUS CULTURE Routine 07/13/2024 8:40 AM SOUND DESIGNER S/P revision of total knee, right SPINAL BLOCK Routine 07/13/2024 8:22 AM SOUND DESIGNER REVISION TOTAL JOINT REPLACEMENT KNEE 07/13/2024 7:23 AM SOUND DESIGNER S/P revision of total knee, right HGB A1C STAT 07/13/2024 6:31 AM SOUND DESIGNER ECG 12 LEAD INPATIENT Routine 07/13/2024 6:28 AM SOUND DESIGNER EKG 07/13/2024 LABORATORY REPORT 07/09/2024 LABORATORY REPORT 07/03/2024 INSERTION/PLACEMENT HYPOGLOSSAL NERVE STIMULATOR 06/17/2024 10:38 AM SOUND DESIGNER HUI (obstructive sleep apnea) EKG 06/17/2024 from Last 3 Months Results * XR Knee Rt 3 Views (08/11/2024 8:57 AM SOUND DESIGNER) Anatomical Region Laterality Modality Lower Extremity, Knee Digital Ra diography 08/11/2024 8:56 AM SOUND DESIGNER Narrative 08/11/2024 9:41 AM SOUND DESIGNER COMPARISON: 07/13/2024 FINDINGS: The total knee arthroplasty appears satisfactorily articulated on 3 views. Surrounding bone appears intact. There is a small joint effusion. Small amount of infrapatellar soft tissue gas may reflect residual postoperative gas. Procedure Note Tj Noonan MD - 08/11/2024 COMPARISON: 07/13/2024 FINDINGS: The total knee arthroplasty appears satisfactorily articulatedon 3 views. Surrounding bone appears intact. There is a small jointeffusion. Small amount of infrapatellar soft tissue gas may reflectresidual postoperative gas. us Pelon Lira MD RAD GD Final Result * PULMONARY TEST SC (08/05/2024) us Interface Provider DUMMY/OTHER/AR Final Resu lt * PFT (08/05/2024) us Interface Provider DUMMY/OTHER/AR Final Resu lt * (ABNORMAL) Hemoglobin in AM POD #1 (07/14/2024 7:46 AM SOUND DESIGNER) Hemoglobin 9.8(L) 12.0 - 15.5 g/dL 07/14/2024 7:57 AM SOUND DESIGNER [facility] Blood Venipuncture / Unknown 07/14/2024 7:46 AM SOUND DESIGNER 07/14/2024 7:52 AM SOUND DESIGNER us Jazlyn Zuniga RN, RADIATION THERAPIST INBOUND CUSTOMER SERVICE AGENT LAB_1 Final Result [facility] [address] [place] [address], [facility] * XR Knee Rt 2 Views (07/13/2024 12:20 PM SOUND DESIGNER) Only the most recent of2 resultswithin the time period is included. Anatomical Region Laterality Modality Lower Extremity, Knee Radiograph ic Imaging 07/13/2024 11:5 1 AM SOUND DESIGNER Impressions 07/13/2024 2:35 PM SOUND DESIGNER Postsurgical follow-up. Narrative 07/13/2024 2:35 PM SOUND DESIGNER COMPARISON: Earlier same day, May 26, 2024. FINDINGS: Interval revision right total knee arthroplasty. No periprosthetic lucency. No fracture or dislocation. Patellar resurfacing. Soft tissues within normal limits. Procedure Note Tj Granado MD - 07/13/2024 COMPARISON: Earlier same day, May 26, 2024. FINDINGS: Interval revision right total knee arthroplasty. Noperiprosthetic lucency. No fracture or dislocation. Patellar resurfacing.Soft tissues within normal limits. IMPRESSION Postsurgical follow-up. Pelon Lira MD RAD GD Final Result * Fungus Culture (07/13/2024 8:53 AM SOUND DESIGNER) Only the most recent of2 resultswithin the time period is included. Fungus Culture No Fungus Isolated 08/13/2024 7:53 AM SOUND DESIGNER [facility] Fungus Smear No Yeast or Fungal Elements Found 08/13/2024 7:53 AM SOUND DESIGNER [facility] Tissue ENTIRE KNEE REGION / Unknown 07/13/2024 8:53 AM SOUND DESIGNER 07/13/2024 9:47 AM SOUND DESIGNER Pelon Lira MD LAB_1 Final Result [address] [address], [facility] * Anaerobic Culture Extended Incubation 14 Days (07/13/2024 8:53 AM SOUND DESIGNER) Only the most recent of2 resultswithin the time period is included. Anaerobic Culture, Extended Incubation 14 Days No Anaerobes Isolated 07/27/2024 7:22 AM SOUND DESIGNER [facility] Tissue ENTIRE KNEE REGION / Unknown 07/13/2024 8:53 AM SOUND DESIGNER Pelon Lira MD LAB_1 Final Result Performing Organization Address [facility] de Phone Number [address] * Aerobic Culture Extended Incubation 14 Days (07/13/2024 8:53 AM SOUND DESIGNER) Only the most recent of2 resultswithin the time period is included. Aerobic Culture Extended Incubation No Growth 07/27/2024 3:19 PM [facility] Gram Smear Rare PMN's Present 07/27/2024 3:19 PM [facility] Gram Smear No Organisms Seen 07/27/2024 3:19 PM [facility] Tissue ENTIRE KNEE REGION / Unknown 07/13/2024 8:53 AM SOUND DESIGNER Pelon Lira MD LAB_1 Final Result Performing Organization Address [address] * AFB Culture (07/13/2024 8:53 AM SOUND DESIGNER) Only the most recent of2 resultswithin the time period is included. AFB Culture No Mycobacteria Isolated 09/09/2024 8:15 AM [facility] AFB Smear No Acid Fast Bacilli Found 09/09/2024 8:15 AM [facility] Tissue ENTIRE KNEE REGION / Unknown 07/13/2024 8:53 AM SOUND DESIGNER Pelon Lira MD LAB_1 Final Result Performing Organization Address [facility] Co de Phone Number [address] * SPINAL BLOCK (07/13/2024 8:22 AM SOUND DESIGNER) Narrative EXTERNAL RESULTS - 07/13/2024 8:22 AM SOUND DESIGNER Rosie Romeo MD 07/13/2024 8:22 AM Spinal Anesthetic Performed by: Rosie Romeo MD Authorizing/Supervising provider: Rosie Romeo MD Block Start: 07/13/2024 7:54 AM Block end: 07/13/2024 7:59 AM Performed by: Anesthesiologist Patient Location OR Checklist: risks and benefits discussed, IV checked, anesthesia consent, monitors and equipment checked, patient identified and pre-op evaluation Correct patient: yes Correct procedure: yes Correct position: yes Correct site: yes Patient Position: sitting Sterile prep: Hat, Patient draped, Sterile gloves, Mask and Chloraprep Insertion site: L2-3 Approach: midline Needle type: Andrew Needle gauge: 25 G Needle length: 3.5 in Introducer needle used Attempts: 1 Redirects: 1 Monitoring: school bus monitor and continuous pulse ox CSF: adequate CSF flow from spinal needle and CSF clear Paresthesias: No Events: None Complications: none Pt tolerated procedure well Notes: R/B/A of neuraxial anesthesia discussed with the patient with risks including infection, bleeding/hematoma, damage to nearby structures, block failure, and headache. All questions were answered. The patient consented to the procedure. Medications from procedure kit: BUPivacaine-dextrose 0.75-8.25% intrathecal injection - Intrathecal 1.6 mL - 07/13/2024 7:59:00 AM lidocaine PF 1 % injection - Subcutaneous 1 mL - 07/13/2024 7:56:00 AM Medications used that are not from kit? Yes Local anesthetic: Tetracaine 1% - Intrathecal 0.5 mL - 07/13/2024 7:59:00 AM Rosie Romeo MD ANESTHESIA/AR Final Result EXTERNAL RESULTS * Hgb A1C (07/13/2024 6:31 AM [facility]) Hemoglobin A1C 5.6 <=5.6 % 07/13/2024 7:46 AM [facility] Estimated Average Glucose (Calc) 114 < 117 mg/dL 07/13/2024 7:46 AM [facility] Comment:Estimated average gl ucose (eAG) converts A1c into glucose units (mg/dL) and estimates average glucose over the past approximately 3 months. The eAG reference interval (<117 mg/dL) corresponds to an A1c of <5.7%. Blood Venipuncture / Unknown 07/13/2024 6:31 AM SOUND DESIGNER 07/13/2024 6:36 AM SOUND DESIGNER us Pelon Lira MD LAB_1 Final Result Performing Organization Address [facility] Co de Phone Number [facility] [address] [place] [address], [facility] * ECG 12 Lead Inpatient (07/13/2024 6:28 AM SOUND DESIGNER) Ventricular Rate 64 BPM [facility] Atrial Rate 64 BPM [facility] P-R Interval 170 ms [facility] QRS Duration 106 ms [facility] QT 430 ms [facility] QTC 443 ms [facility] P Lachine 46 degrees [facility] R Lachine 72 degrees [facility] T Lachine 69 degrees [facility] 07/13/2024 6:28 AM SOUND DESIGNER Narrative [facility] - 07/13/2024 9:13 AM SOUND DESIGNER Sinus rhythm Normal ECG When compared with ECG of 15-NOV-2022 16:08, No significant change was found Confirmed by Jes Heller ([id number]) on 07/13/2024 9:13:10 AM Procedure Note Jes Heller MD - 07/13/2024 Sinus rhythm Normal ECG When compared with ECG of 15-NOV-2022 16:08, No significant change was found Confirmed by Jes Heller ([id number]) on 07/13/2024 9:13:10 AM us Pelon Lira MD PN ECG ORDERABLES Final Resul t Performing Organization Address [facility] Co de Phone Number [facility] [address] [place] [address] * EKG (07/13/2024) Only the most recent of2 resultswithin the time period is included. us Interface Provider EKG Final Resu lt * LABORATORY REPORT (07/09/2024) Only the most recent of2 resultswithin the time period is included. us Interface Provider DUMMY/OTHER/AR Final Resu lt from Last 3 Months Additional Health Concerns Active Problems Noted Date Diagnosed Date ET PROE RIGHT KNEE 01/14/2023 ET PROE SHELL PROBLEM TEMPLATE 05/27/2024 Insurance FULLY INSURED FULLY INSURED FULLY INSURED Advance Directives * Full Code (Latest Code Status on File) Date Activated Date Inactivated Comments 07/13/2024 4:52 PM 07/14/2024 4:43 PM * Full Code Date Activated Date Inactivated Comments 01/14/2023 7:55 PM 01/16/2023 3:28 PM * Full Code Date Activated Date Inactivated Comments 11/30/2022 11:14 AM 11/30/2022 6:19 PM Care Teams Health Information Technician Relationship Specialty Start Date End Date Marilia Merrill MD [address] [place] [address] PCP - General Family Practice 07/13/24
--- OUTSIDE RECORDS SUMMARY | 2024-09-15 15:10 | XMS_ITS | Encounter Summary ---
Author Organization [facility] Address [address], [place] [address] Care Team Providers Care Retaining Room Cutter Name Role Phone Marilia Merrill MD Primary Care Provider [phone] Encounter Details Date Type Department Care Team (Latest Contact Info) Description 08/05/2024 Orders Only HIM DEPARTMENT ProviderFerdinand [place] [address] Social History Tobacco Use Types Packs/Day Years Used Date Smoking Tobacco: Never Smokeless Tobacco: Never Alcohol Use Standard Drinks/Week Comments Yes 0 (1 standard drink = 0.6 oz pur e alcohol) weekly [facility] Utilities Answer Date Recorded In the past 12 months has e [employer], gas, oil, or water [employer] threatened to shut off services in your [...] any time in the past [address] [facility], were you homeless or living in a mcc (including now)? No 07/13/2024 Comments No Sex and Gender Information Value Date Recorded Sex Assigned at Not on file Legal Sex Female 5:05 AM CDT Gender Identity Not on file Sexual Orientation Not on file documented as of this encounter Plan of Treatment Upcoming Encounters Date Type Department Care Team (Late st Contact Info) Description 09/22/2024 8:40 AM PRINTED CIRCUIT BOARD PCB DESIGNER Appointment [facility] [address] [place] [address] Pelon Lira MD [address] [facility] [place] [address] 09/23/2024 1:00 PM PRINTED CIRCUIT BOARD PCB DESIGNER Appointment [facility] [address] [place] [address]. [place] [address] Nasiam Early, DENTAL TECHNOLOGY ADVISOR, JUNIOR ACCOUNTING CLERK [address] [place], [place] [id number] documented as of this encounter Goals Goal Patient Goal Type Associated Problems Recent Progress Patient-Stated? Author Right Knee Replacement Care Plan ET PROE RIGHT KNEE No Nila Sawyer documented as of this encounter Procedures Procedure Name Priority Date/Time Associated Diagnosis Comments PFT 08/05/2024 documented in this encounter Results * PFT (08/05/2024) us Interface Provider DUMMY/OTHER/AR Final Resu lt documented in this encounter Visit Diagnoses Not on filedocumented in this encounter Additional Health Concerns Active Problems Noted Date Diagnosed Date ET PROE RIGHT KNEE 01/14/2023 ET PROE SHELL PROBLEM TEMPLATE 05/27/2024 documented as of this encounter Care Teams Retaining Room Cutter Relationship Specialty Start Date End Date Marilia Merrill MD [address] [place] [address] PCP - General Family Practice 07/13/24 documented as of this encounter
--- OUTSIDE RECORDS SUMMARY | 2024-09-15 15:10 | XMS_ITS | Encounter Summary ---
Author Organization [facility] Address [address] [address] Care Team Providers Care Waste Water Worker Name Role Phone Marilia Merrill MD Primary Care Provider [phone] Encounter Details Date Type Department Care Team (Late st Contact Info) Description 07/26/2024 sachi Wilson [address] [place] [address] Social History Tobacco Use Types Packs/Day Years Used Date Smoking Tobacco: Never Smokeless Tobacco: Never Alcohol Use Standard Drinks/Week Comments Yes 0 (1 standard drink = 0.6 oz pur e alcohol) weekly [facility] Utilities Answer Date Recorded In the past 12 months has e [employer], gas, oil, or water [employer] threatened to shut off services in your [...] any time in the past 12 m [facility], were you homeless or living in a correction (including now)? No 07/13/2024 Comments No Sex and Gender Information Value Date Recorded Sex Assigned at Not on file Legal Sex Female 5:05 AM CDT Gender Identity Not on file Sexual Orientation Not on file documented as of this encounter Plan of Treatment Upcoming Encounters Date Type Department Care Team (Late st Contact Info) Description 09/22/2024 8:40 AM PAPER CUP MACHINE OPERATOR Appointment [facility] [address] [place] [address] Pelon Lira MD [address] [facility] [place] [address] 09/23/2024 1:00 PM PAPER CUP MACHINE OPERATOR Appointment [facility] [address] [facility] [address] [place] [address]. [place] [address] Nasima Early, MACHINE STEMMER, RECEPTIONIST NURSE [address] [place], [place] [phone] documented as of this encounter Goals Goal Patient Goal Type Associated Problems Recent Progress Patient-Stated? Author Right Knee Replacement Care Plan ET PROE RIGHT KNEE No Nila Sawyer documented as of this encounter Visit Diagnoses Diagnosis Urinary tract infection, site not specified documented in this encounter Additional Health Concerns Active Problems Noted Date Diagnosed Date ET PROE RIGHT KNEE 01/14/2023 ET PROE SHELL PROBLEM TEMPLATE 05/27/2024 documented as of this encounter Care Teams Waste Water Worker Relationship Specialty Start Date End Date Marilia Merrill MD [address] [place] [address] PCP - General Family Practice 07/13/24 documented as of this encounter
--- OUTSIDE RECORDS SUMMARY | 2024-09-15 15:10 | XMS_ITS | Encounter Summary ---
Author Organization [facility] Address [address], [place] [address] Care Team Providers Care Outreach Educator Name Role Phone Marilia Merrill MD Primary Care Provider Reason for Visit * Procedure/Equipment (Routine) - Incomplete Specialty Diagnoses / Procedures Referred By Fawad delarosa Referred To Contact Diagnoses S/P revision of total knee, right Procedures XR Knee Rt 3 Views Pelon Lira MD [address] [place] [place] [address] Phone: tel: fax: Referral ID Status Reason Start Date Expiration Date V isits Requested Visits Authorized [id number] Incomplete 08/11/2024 11/10/2025 1 1 Encounter Details Date Type Department Care Team (Late st Contact Info) Description 08/11/2024 8:50 AM PRESS PULLER Ancillary Procedure [facility] [address] [place], [place] [address] Pelon Lira MD [address] [facility] [facility] [address] [place] [id number] S/P revision of total knee, right Social History Tobacco Use Types Packs/Day Years Used Date Smoking Tobacco: Never Smokeless Tobacco: Never Alcohol Use Standard Drinks/Week Comments Yes 0 (1 standard drink = 0.6 oz pur e alcohol) weekly [facility] Utilities Answer Date Recorded In the past 12 months has [employer], gas, oil, or water company threatened to shut off services in your [...] time in the past 12 m [facility], were you homeless or living in a half-way (including now)? No 07/13/2024 Comments No Sex and Gender Information Value Date Recorded Sex Assigned at Not on file Legal Sex Female 5:05 AM CDT Gender Identity Not on file Sexual Orientation Not on file documented as of this encounter Plan of Treatment Upcoming Encounters Date Type Department Care Team (Late st Contact Info) Description 09/22/2024 8:40 AM PRESS PULLER Appointment [facility] [address] [facility] [place] [address] Pelon Lira MD [address] [facility] [place] [address] 09/23/2024 1:00 PM PRESS PULLER Appointment [facility]ty [facility] [address] [facility] [place] [address] Nasima Early, [place] LOW TRUCK DRIVER, SUCCESSFACTORS CONSULTANT [address] [place] [address] documented as of this encounter Goals Goal Patient Goal Type Associated Problems Recent Progress Patient-Stated? Author Right Knee Replacement Care Plan ET PROE RIGHT KNEE No Nila Sawyer documented as of this encounter Procedures Procedure Name Priority Date/Time Associated Diagnosis Comments XR KNEE RT 3 VIEWS Routine 08/11/2024 8: 57 AM PRESS PULLER S/P revision of total knee, right documented in this encounter Results * XR Knee Rt 3 Views (08/11/2024 8:57 AM PRESS PULLER) Anatomical Region Laterality Modality Lower Extremity, Knee Digital Ra diography 08/11/2024 8:56 AM PRESS PULLER Narrative 08/11/2024 9:41 AM PRESS PULLER COMPARISON: 07/13/2024 FINDINGS: The total knee arthroplasty [...] Pelon Lira MD RAD GD Final Result documented in this encounter Visit Diagnoses Diagnosis S/P revision of total knee, right documented in this encounter Additional Health Concerns Active Problems Noted Date Diagnosed Date ET PROE RIGHT KNEE 01/14/2023 ET PROE SHELL PROBLEM TEMPLATE 05/27/2024 documented as of this encounter Care Teams Outreach Educator Relationship Specialty Start Date End Date Marilia Merrill MD [address] [place] [address] PCP - General Family Practice 07/13/24 documented as of this encounter
--- OUTSIDE RECORDS SUMMARY | 2024-09-15 15:10 | XMS_ITS | Encounter Summary ---
Author Organization [facility] Address [address] [place] [address] Care Team Providers Care Tin Worker Name Role Phone Marilia Merrill MD Primary Care Provider [phone] Reason for Referral * Procedure/Equipment (Routine) - Incomplete Specialty Diagnoses / Procedures Referred By Contjerson t Referred To Contact Diagnoses S/P revision of total knee, right Procedures XR Knee Rt 3 Views Pelon Lira MD [address] [place] [address] Phone: tel: fax: Referral ID Status Reason Start Date Expiration Date V isits Requested Visits Authorized [id number] Incomplete 08/11/2024 11/10/2025 1 1 CUTTER Reason for Visit * Reason Comments Post-Op Follow Up Right TKA Revision Encounter Details Date Type Department Care Team (Late st Contact Info) Description 08/11/2024 8:40 AM GAS CUTTER Office Visit [facility] [address] [facility] [place], [place] [address] Pelon Lira MD [address] [facility] [place] [address] S/P revision of total knee, right (Primary Dx) Social History Tobacco Use Types Packs/Day Years Used Date Smoking Tobacco: Never Smokeless Tobacco: Never Alcohol Use Standard Drinks/Week Comments Yes 0 (1 standard drink = 0.6 oz pur e alcohol) weekly [facility] Utilities Answer Date Recorded In the past 12 months has th e electric, gas, oil, or water company threatened to [...] were you homeless or living in a senior living (including now)? No 07/13/2024 Comments No Sex and Gender Information Value Date Recorded Sex Assigned at Not on file Legal Sex Female 5:05 AM CDT Gender Identity Not on file Sexual Orientation Not on file documented as of this encounter Patient Instructions * Patient Instructions* Jael Short MA - 08/11/2024 8:40 AM GAS CUTTER Thank you for Choosing [facility] for your health care visit today. Dr. Pelon Lira MD Orthopaedic Surgeon Medication Requests: Prescriptions are not filled on weekends or on weekdays after 3:00 PM. For all medication refills: Request a refill using Ethertronic[employer] or contact your pharmacy. What is Know Your Cost? Know Your Cost is a service for patients and patient/members to call and receive personalized cost information and estimates across our care group. The phone number is (COST) Saturday - Saturday 8 AM to 5 PM Advanced Imaging Scheduling: To schedule an MRI, Ultrasound, or Image guided injection at [facility] please call [phone]. To schedule an MRI or CT at a [facility] please call [phone]. [facility] Workers' Compensation [address] [place] [address] (Phone) Email: [email or web address] Release of Information: Radiology/Imaging [address] [place] [address] (Phone) Health Information Management [address] [place] [address] (Phone) Ruby Ribbon CUTTER documented in this encounter Progress Notes * Pelon Lira MD - 08/11/2024 8:40 AM CST Deann Bajwa Age: 59 y.o. Date of : 1965 Interval History Deann Bajwa is a 59 y.o. female who returns today for a post-operative follow up visit s/p: Revision right TKA - 07/13/24 Deann returns for follow-up visit for the revision right total knee replacement. The patient notes that things are slowly and steadily improving. She does feel like the preoperative symptoms have greatly improved. She now feels like her symptoms are more soft tissue and muscle related. She is cautiously optimistic with how things have been progressing. Her range of motion has been steadily improving and feels like the range of motion is much better than it had previously been. Her incision healed uneventfully. She is using a cane for ambulation and is trying to wean off of the cane. She has weaned off of pain medication appropriately. Some of the newer symptoms are deep in her femur and distal tibia which are new. The symptoms are slowly improving. Physical Exam: NAD AOx3 Interactive and cooperative with the exam. The patient walks with a well-balanced gait. There is no pain with gentle knee range of motion. Knee range of motion is from 0 to 110. The extensor mechanism is intact. The incision is well-healed. Data: Imaging: X-rays demonstrate well-fixed well-positioned cemented revision knee replacement implants. Assessment and Plan: Deann Bajwa is a 59 y.o. female is s/p the above procedure. The patient is making excellent progress following the knee replacement. They will continue to progress with activities as tolerated in a stepwise fashion. We discssed the salvage determiner recovery process and natural history of total knee replacement. I would expect the strength, mobility, and function to continue to steadily improve. I will see the patient back in clinic in 4-6 weeks to ensure that things are steadily improving. She will let me know if she has any questions or concerns in the meantime. Of note, I do not feel like she is yet ready to return to work on a normal basis. She will be off for another 4 weeks and we will see how things are progressing. She will let us know if she has any other questions or concerns in the meantime. CUTTER documented in this encounter Plan of Treatment Upcoming Encounters Date Type Department Care Team (Late st Contact Info) Description 09/22/2024 8:40 AM GAS CUTTER Appointment [address] [address] Pelon Lira MD [address] [facility] [place], [place] [address] 09/23/2024 1:00 PM GAS CUTTER Appointment [facility] [address] [facility] [address] Nasima Early, RUBBER WASHER, MINER OPERATOR [address] [place], [place] [phone] documented as of this encounter Goals Goal Patient Goal Type Associated Problems Recent Progress Patient-Stated? Author Right Knee Replacement Care Plan ET PROE RIGHT KNEE No Nila Sawyer documented as of this encounter Results * XR Knee Rt 3 Views (08/11/2024 8:57 AM GAS CUTTER) Anatomical Region Laterality Modality Lower Extremity, Knee Digital Ra diography 08/11/2024 8:56 AM GAS CUTTER Narrative 08/11/2024 9:41 AM GAS CUTTER COMPARISON: 07/13/2024 FINDINGS: The total knee arthroplasty [...] Diagnoses Diagnosis S/P revision of total knee, right- Primary S/P revision of total knee, right documented in this encounter Additional Health Concerns Active Problems Noted Date Diagnosed Date ET PROE RIGHT KNEE 01/14/2023 ET PROE SHELL PROBLEM TEMPLATE 05/27/2024 documented as of this encounter Care Teams Tin Worker Relationship Specialty Start Date End Date Marilia Merrill MD [address] [place] [address] PCP - General Family Practice 07/13/24 documented as of this encounter
--- OUTSIDE RECORDS SUMMARY | 2024-09-15 15:10 | XMS_ITS | Continuity of Care Document ---
Author Organization [facility] Address [address] [place] [address] Phone Care Team Providers Care Physical Optics Teacher Name Role Phone Gabe Isabel MD Unavailable Unavailable Allergies, Adverse Reactions, Alerts Substance Reaction Status Criticality No Known Allergies Active No Inform ation Medications Medication Instructions Dosage Effective Dates (start - stop) Status Comments TRAZODONE HCL (unknown strength) Not Available - Active LISINOPRIL (unknown strength) Not Available - Active Procedures Procedure Date Office/Outpatient Visit,Est, Low 2014 X-Ray Exam Of Spine, Single View 2014 Postop Followup Visit X-Ray Exam Of Spine, Single View 2013 Neck Spine Fuse & Removal Addl 14 Insert Spine Fix Dev, Ant, 2-3 Seg Apply Spinal Prosthetic Device 14 Autograft, Spine Surg, Morselized Allograft, Spine Surg, Morselized Pa Neck Spine Fuse & Removal Addl Pa Assist Insert Spine Fix Dev, Ant, 2-3 Seg Pa Assist Apply Spinal Prosthetic Device Pa Assist Autograft, Spine Surg, Morseli zed Advance Directives Directive Yes / No Effective Date File Name No Information Encounters Encounter Description Practice Location Reason(s) For Visit Diagnoses Date Provider Providers Copied on Encounter [facility], [address], [place], [place], [id number], [place] tel:[phone] [facility] No Information 6 Maame Bernal. [facility], [address] [facility] , [place], [address], [place]. tel:[phone] Office/Outpat ient Visit,Est, Low [facility], [address], [place], [place], [id number], tel:[phone] [facility] No Information 5 Maame Bernal. [facility], [address] [place], [address], [place]. tel:[phone] Referring Provider: Hayden Zaldivar, [facility] [address] , [place], [address]. tel:[phone] [facility], [address], [place], [place], [id number], tel:[phone] [facility] Unspecified nerve root and plexus disorder 4 Maame Bernal. [facility], [address] [facility] [place], [address], [place]. tel:[phone] Referring Provider: Hayden Zaldivar [facility] [place], [address]. tel:[phone] [facility], [address] [facility] [address], [place], [address], [place] tel:[phone] [facility] No Information 4 Maame Bernal. [facility], [address] [place], [address], [place]. tel:[phone] Referring Provider: Hayden Zaldivar [facility] [place], [address]. tel:[phone] Family History Family Member Type Diagnosis Age At Onset No Information Payers Payer name Insurance type Covered constitution party ID Jean whitehead(s) [facility] [id number] Social History Type Description Quantity Date Captured Comments Sex Female Smoking Status No Information Chief Complaint And Reason For Visit No Information Reason For Referral Reason For Referral No Information History Of Present Illness Encounter Date Complaint History Of Prese nt Illness No Information Functional Status Date Functional Assessmen t No Information Instructions Date Instruction Additional Infor mation No Information Assessments Type Assessment Date No Information Patient Care Teams Name Effective Dates (start - stop) Status Members No Information
--- OUTSIDE RECORDS SUMMARY | 2024-09-15 15:11 | XMS_ITS | Encounter Summary ---
[facility] Organization [facility] Address [address], [place] [address] Care Team Providers Care Human Service Technician Name Role Phone Marilia Merrill MD Primary Care Provider [phone] Reason for Visit * Reason Comments QUESTIONS, GENERAL Entered automaticall y based on patient selection in [employer]. Encounter Details Date Type Department Care Team (Late st Contact Info) Description 08/12/2024 E-Visit [facility] [address] [place] [address]. [place] [address] Nasima Early, HOME HEALTH SCHEDULER, ROLLER [address] [place] [address] Chief Comp: QUESTIONS, GENERAL Social History Tobacco Use Types Packs/Day Years Used Date Smoking Tobacco: Never Smokeless Tobacco: Never Alcohol Use Standard Drinks/Week Comments Yes 0 (1 standard drink = 0.6 oz pur e alcohol) weekly [facility] Utilities Answer Date Recorded In the past 12 months has e [employer], gas, oil, or water [employer] threatened to shut off services in your [...] any time in the past 12 m [facility], were you homeless or living in a prison (including now)? No 07/13/2024 Comments No Sex and Gender Information Value Date Recorded Sex Assigned at Not on file Legal Sex Female 5:05 AM CDT Gender Identity Not on file Sexual Orientation Not on file documented as of this encounter Plan of Treatment Upcoming Encounters Date Type Department Care Team (Late st Contact Info) Description 09/22/2024 8:40 AM VP PACKAGING Appointment [facility] [address] [facility] [place] [address] Pelon Lira MD [address] [facility] [place] [id number] 09/23/2024 1:00 PM VP PACKAGING Appointment [facility] [address] [place] [address]. [place] [address] Nasima Early, HOME HEALTH SCHEDULER, ROLLER [address] [place], [place] [id number] documented as of this encounter Goals Goal [...] documented as of this encounter Care Teams Human Service Technician Relationship Specialty Start Date End Date Marilia Merrill MD [address] [place] [address] PCP - General Family Practice 07/13/24 documented as of this encounter
--- OUTSIDE RECORDS SUMMARY | 2024-09-15 15:11 | XMS_ITS | Clinical Summary ---
Author Organization [facility] Address [address] [place] [address] Care Team Providers Care Services Manager Name Role Phone Marilia Merrill MD Primary Care Provider [phone] Social History Tobacco Use Types Packs/Day Years Used Date Smoking Tobacco: Never Assessed Adolescent Education Answer Date Record ed Getting School Help Needed Not on file 04/28 Comments Unknown Sex and Gender Information Value Date Recorded Sex Assigned at Female 08/20/2022 2:19 PM [facility] Legal Sex Female 3:24 AM [employer] Gender Identity Female 08/20/2022 2:19 PM [facility] Sexual Orientation Straight 08/20/2022 2: 19 PM [facility] Plan of Treatment Health Maintenance Due Date Last Done Comments ADVANCE CARE PLANNING 1967 ANNUAL REVIEW OF HM ORDERS 1967 CT COLONOGRAPHY 1967 FIT 1967 FLEX SIG 1967 GLUCOSE 1967 sDNA (Cologuard) 1967 YEARLY PREVENTIVE VISIT 1970 COLONOSCOPY 1977 COLORECTAL CANCER SCREENING 1977 HIV SCREENING 1982 HEPATITIS C SCREENING 1985 HEPATITIS B IMMUNIZATION (1 of 3 - 19+ 3-dose series) 1986 PAP 1988 DTAP/TDAP/TD IMMUNIZATION (1 - Tdap) 07/12/1999 07/11/1999 LIPID 2007 Pneumococcal Vaccine: 50+ Years (1 of 1 - PCV) 2017 COVID-19 Vaccine (3 - 2023- season) 2024 10/19/2020, 09/21/2020 INFLUENZA VACCINE (#1) 2024 05/17/2021, 2019 PHQ-2 (once per calendar year) 2024 MAMMO SCREENING 08/23/2024 08/23/2022, 07/30, 11/21/2016, Additional history exists ZOSTER IMMUNIZATION Completed 11/11/2020, 0 HPV IMMUNIZATION Aged Out No longer e ligible based on patient's age to complete this topic MENINGITIS IMMUNIZATION Aged Out No l onger eligible based on patient's age to complete this topic Procedures Procedure Name Priority Date/Time Associated Diagnosis Comments SURGICAL PATHOLOGY EXAM Routine 07/10/2024 10:05 AM [facility] Unspecified disorder of eyelid MA SCREENING BILATERAL W/ MARGARITA Routine 08/23/2022 11:54 AM [facility] Visit for screening mammogram from Last 3 Months or Most Recently Relevant to Health Maintenance Results * Surgical Pathology Exam (07/10/2024 10:05 AM [facility]) Case Report Surgical Pathology Report Case: [id number] Authorizing Provider: Manuel Martinez MD Collected: 07/10/2024 10:05 AM Ordering Location: [facility] Received: 07/13/2024 09:08 AM [facility] Pathologist: Tres Kaye MD Specimen: Eyelid, Lower, Left 07/15/2024 8:39 AM [facility] Final Diagnosis Skin, left lower eyelid, biopsy- 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 Eyelid, Lower, Left, : The specimen is received in formalin, labeled with the patient's name, medical record number and other identifying information designated left lower eyelid lesion. It consists of 0.1 cm fragment of white-rudd soft tissue. The specimen is submitted entirely in formalin wrapped in lens paper in 1 cassette. MCKENNA Sesay(ASCP)CM 07/13/2024 9:39 AM 07/15/2024 8:39 AM [facility] Microscopic Description Microscopic performed 07/15/2024 8:39 AM [facility] Performing Labs The technical component of this testing was completed at [facility]. Stain controls for all stains resulted within this report have been reviewed and show appropriate reactivity. 07/15/2024 8:39 AM [facility] Case Images 07/15/2024 8:39 AM [facility] Tissue STRUCTURE OF LEFT LOWER EYELID / Unknown 07/10/2024 10:05 AM [facility] 07/13/2024 9:08 AM [facility] us Manuel SWAIN - JACQUES Final Result LABORATORY [facility] [address] floor, [address] [place] [address], [facility] [phone] * MA Screen Bilateral w/Margarita (08/23/2022 11:54 AM [facility]) Anatomical Region Laterality Modality Breast Bilateral Mammography Impressions 08/23/2022 12:42 PM [facility] IMPRESSION: ACR BI-RADS Category 1: Negative RECOMMENDED FOLLOW-UP: Annual routine screening mammogram The results and recommendations of this examination will be communicated to the patient. Jovita Raines MD Narrative 08/23/2022 12:42 PM [facility] BILATERAL FULL FIELD DIGITAL SCREENING MAMMOGRAM WITH TOMOSYNTHESIS Performed on: 08/23/22 Compared to: 08/21/2021 and 11/21/2016 Technique: This study was evaluated with the assistance of Computer-Aided Detection. Breast Tomosynthesis was used in interpretation. Findings: The breasts are extremely dense, which lowers the sensitivity of mammography. There is no radiographic evidence of malignancy. us Marilia Merrill MD IMG MAMMOGRAPHY ORDERABLES Final Result from Last 3 Months or Most Recently Relevant to Health Maintenance Insurance [facility] Care Teams Services Manager Relationship Specialty Start Date End Date Marilia Merrill MD [address] [place], [place] [phone] PCP - General 08/23/22
--- OUTSIDE RECORDS SUMMARY | 2024-09-15 15:11 | XMS_ITS | Encounter Summary ---
Author Organization [facility] Address [address] [place] [address] Care Team Providers Care Test Administrator Name Role Phone Marilia Merrill MD Primary Care Provider [phone] Encounter Details Date Type Department Care Team (Late st Contact Info) Description 08/25/2024 E-Visit [facility] [address] [place] [address] Mychart, [place] [address] Social History Tobacco Use Types Packs/Day Years Used Date Smoking Tobacco: Never Smokeless Tobacco: Never Alcohol Use Standard Drinks/Week Comments Yes 0 (1 standard drink = 0.6 oz pur e alcohol) weekly [facility] Utilities Answer Date Recorded In the past 12 months has e [employer] gas, oil, or water [employer] threatened to shut off services in your [...] any time in the past 12 m [facility], were you homeless or living in a penitentiary (including now)? No 07/13/2024 Comments No Sex and Gender Information Value Date Recorded Sex Assigned at Not on file Legal Sex Female 5:05 AM CDT Gender Identity Not on file Sexual Orientation Not on file documented as of this encounter Plan of Treatment Upcoming Encounters Date Type Department Care Team (Late st Contact Info) Description 09/22/2024 8:40 AM INSULATION MECHANIC Appointment [facility] [address] [place] [address] Pelon Lira MD [address] [facility] [place] [address] 09/23/2024 1:00 PM INSULATION MECHANIC Appointment [facility] [address] [facility]. [place], [place] [phone] Nasima Early, MARBLEIZING MACHINE TENDER, ELECTRICAL UNIT REBUILDER [address] [place], [place] [phone] documented as of this encounter Goals Goal [...] documented as of this encounter Care Teams Test Administrator Relationship Specialty Start Date End Date Marilia Merrill MD [address] [place] [address] PCP - General Family Practice 07/13/24 documented as of this encounter
[2024-09-15 15:13] VITALS: BP 153/97; PULSE 86; RESP 18; TEMP 36.7; O2SAT 97
--- NOTE | 2024-09-15 15:20 | ED.GENADULT ---
HPI - General Adult General Chief complaint: Hip Injury/Pain Stated complaint: cyst on L hip Time Seen by Provider: 09/15/24 15:08 History of Present Illness HPI narrative: Patient states that about 3 weeks ago she developed a pimple on upper left gluet. States it has now developed into a large cyst Very painful. 59-year-old woman presenting to the emergency department with concern of infection at her left hip. Three weeks ago had a pimple in this area and it has only gotten worse. 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 Is using a crutch to walk but that is only because of her right leg. No chills. No fever. No drainage. Has been warm packing I believe I understood her to say. Related Data Home Medications ?Medication ?Instructions ?Recorded ?Confirmed lisinopril 10 mg tablet 10 mg PO DAILY 08/06/23 08/06/23 trazodone 50 mg tablet mg PO 08/06/23 08/06/23 Allergies Allergy/AdvReac Type Severity Reaction Status Date / Time No Known Drug Allergies Allergy Verified 08/06/23 19:13 Review of Systems Status of ROS: Reports: 6 or more systems reviewed and unremarkable except as noted in History and below [facility] Social History Smoking Status: Never smoker Do you use any of these nicotine containing products: None How often do you have a drink containing alcohol: never How often do you have six or more drinks on one occasion: Never AUDIT-C Alcohol total score: 0 Non-prescribed substance use: denies use service: No Exam Narrative: Exam Narrative: Addendum shell exam see scanned drainage bloody drainage on the left hip/upper buttock underwear. There is a 1 cm scabbing/ulceration purplish area. Surrounding this is a nearly silver dollar sized area of erythema in be need that then induration approximately 2-1/2 inches in maximal diameter. This area is generally tender particularly centrally. Small amount of drainage centrally. Return with bedside ultrasound to further evaluate this area. This reveals an approximately 2 cm area of what looks to be loculated fluid collection. Const: Vital Signs, click to edit/add: Vital Signs - 24 hr 09/15/24 15:13 Temperature 98.0 F Pulse Rate [Pulse Oximeter] 86 Respiratory Rate 18 Blood Pressure [Ri ght Upper Arm] 153/97 H Pulse Oximetry 97 Oxygen Delivery Me thod Room Air Documenting provider has reviewed patient's vital signs: yes Course Vital Signs Vital signs: Initial Vital Signs Temperature 98.0 F 09/15/24 15:13 Temperature Source Temporal Artery Scan 09/15/24 15:13 Pulse Rate 86 09/15/24 15:13 Pulse Rhythm Regular 09/15/24 15:13 Respiratory Rate 18 09/15/24 15:13 Blood Pressure 153/97 H 09/15/24 15:13 Blood Pressure Mean 115 H 09/15/24 15:13 Blood Pressure Position Sitting 09/15/24 15:13 Pulse Oximetry 97 09/15/24 15:13 Oxygen Delivery Method Room Air 09/15/24 15:13 Vital Signs Temperature 98.0 F 09/15/24 15:13 Pulse Rate 86 09/15/24 15:13 Respiratory Rate 18 09/15/24 15:13 Blood Pressure 153/97 H 09/15/24 15:13 Pulse Oximetry 97 09/15/24 15:13 Oxygen Delivery Method Room Air 09/15/24 15:13 Temperature 98.0 F 09/15/24 15:13 Pulse Rate 86 09/15/24 15:13 Respiratory Rate 18 09/15/24 15:13 Blood Pressure 153/97 H 09/15/24 15:13 Pulse Oximetry 97 09/15/24 15:13 Oxygen Delivery Method Room Air 09/15/24 15:13 Medications Administered Medications: Discontinued Medications Generic Name Dose Route Start Last Admin Trade Name Freq PRN Reason Stop Dose Admin Lidocaine/Epinephrine 5 ml 09/15/24 16:12 09/15/24 16:15 Lidocaine 1%-Epi 1:100,000 INFILTRATI 09/15/24 16:13 5 ml ONCE ONE Administration Medical Decision Making MDM Narrative Medical decision making narrative: It is already draining a little but I think might resolve faster with opening this wound up for incision and drainage. Given the cellulitic changes on the skin and concerns of secondary infection in this case in particular and lesser blood flow in this area, would give antibiotic. Probably start with Bactrim with desire for more staph coverage. Returned to inject with combination of lidocaine with epinephrine and bupivacaine. Did achieve decent anesthesia. Cleansed surface with Betadine swabs. Incised with 11 blade. Collected wound culture. Expressed in total about 1.5mL of purulence after breaking up small loculations with curved mosquito. Not enough room here to place a wick that would be retained. Covered with bacitracin and fluffed gauze. Tolerated well. See patient discharge plan for further discussion Avoid pressure to this area over the next week. A wound culture will be pending. Meanwhile Bactrim as antibiotic as prescribed from [facility]; 8 days should be sufficient. We will call you if change in antibiotic is needed. Would soak in warm soapy or Epsom salt baths daily over the next 3-4 days. Change dressing as needed or at least daily with antibiotic ointment over this coming week. Be seen for marked spread of redness after 2 days, marked increase in swelling or pain, fever. Medical Records Medical records reviewed: Yes I reviewed the patient's medical records Discharge Plan Discharge Clinical Impression: Cellulitis and abscess of buttock Patient Disposition: Home, Self-Care Condition: Improved Additional Instructions: Avoid pressure to this area over the next week. A wound culture will be pending. Meanwhile Bactrim as antibiotic as prescribed from [facility]; 8 days should be sufficient. We will call you if change in antibiotic is needed. Would soak in warm soapy or Epsom salt baths daily over the next 3-4 days. Change dressing as needed or at least daily with antibiotic ointment over this coming week. Be seen for marked spread of redness after 2 days, marked increase in swelling or pain, fever. Prescriptions: No Action trazodone 50 mg tablet PO lisinopril 10 mg tablet 10 mg PO DAILY Follow Up/Referrals: Provider,Not a Local [Primary Care Provider] - Stand Alone Forms: [employer] Info Instructions
--- OUTSIDE RECORDS SUMMARY | 2024-09-15 15:46 | XMS_ITS | Clinical Summary ---
Author Organization [employer] [facility] Address [address] [place] [address] Care Team Providers Care Video Arcade Manager Name Role Phone Marilia Merrill MD [...] due to other allergic trigger Inhale 1 [place] in both nostrils once daily. 18.2 mL [...] Type Department Care Team Description 09/07/2024 Refill [facility] [address] [place] [address] Marilia Merrill MD Refill Request (Trazodone) 07/08/2024 7:25 AM CRITICAL CARE RN Preop Visit [facility] [address] [place] [address] Marilia Merrill MD Pre-Op Exam (07/13/24) 07/07/2024 [...] PM CDT Legal Sex Female 6:11 AM CRITICAL CARE RN Gender Identity Female 05/21/2020 12:53 PM CDT [...] Comments Blood Pressure 102/60 07/08/2024 7:32 AM CRITICAL CARE RN Pulse 77 07/08/2024 7:32 AM CRITICAL CARE RN Temperature 36.3 C (97.4 F) 07/08/2024 7:32 AM CRITICAL CARE RN Respiratory Rate 16 02/10/2024 12:36 PM CDT Oxygen Saturation 98% 07/08/2024 7:32 AM CRITICAL CARE RN Inhaled Oxygen Concentration - - Weight 84.8 kg (187 lb) 07/08/2024 7:32 AM CRITICAL CARE RN Height 162.6 cm (5' 4) 07/08/2024 7:32 AM CRITICAL CARE RN Body Mass Index 32.1 07/08/2024 7:32 AM CRITICAL CARE RN Plan of Treatment Health Maintenance Due Date Last Done Comments HIV for age 15-65 1982 Hepatitis C screening for ag e 18-79 1985 Pneumococcal series for age 50+ (1 of 1 - PCV) 2017 Pap test for age 21-65 02/26/2019 6 (Completed outside of [email or web address]), 11/26/2009 Tetanus booster 01/08/2021 01/08/2011 (Decl ined), 07/11/1999 COVID-19 vaccine series ( season) 2024 05/15/2023, 10/19/2020, 09/21/2020 Influenza for age 50-64 03/29/2024 05/15/20 23, 05/17/2021, 05/11/2020 Depression screening for age 12+ 08/17/2024 08/17/2023, 08/16/2023, 02/01/2022, Additional history exists Mammogram for age 45-75 10/01/2024 10/02/19 24, 08/23/2022, 12/28/2015 (Completed outside of [email or web address]), Additional history exists Fecal testing non-DNA (FIT,FOBT,iFOBT) for age 45-75 10/06/2024 10/07/2023, 08/22/2021, 12/25/2018 BMI (ht and wt on same day) for age 18+ 07/08/2025 07/08/2024, 06/12/2024, 02/10/2024, Additional history exists Lipids for age 45-75 08/16/2028 08/16/2023, 10/24/2016, 01/19/2013, Additional history exists Zoster (shingles) series for age 50+ Completed 11/11/2020, 05/11/2020 Medical Devices Implanted Type Area Paramedic Device Identifier Shelf Expiration Date Model / Serial / Lot Bone Matrix 1cc Dbx Putty Dbm - [id number] Implanted:Qty : 1 on 05/18/2014 by Gabe Isabel MD at [facility] N/A: Cervical Vertebrae Musculoskeletal Transplant 02/13/2016 [id number] / / [id number] - [id number] Implanted:Qty : 1 on 05/18/2014 by Gabe Isabel MD at [facility] N/A: Cervical Vertebrae 03/28/[id number] / / Description:8MM H X 16MM W X 14MM D MEDITECH SPINE, TALOS Mcsv-40-14 - [id number] Implanted:Qty : 4 on 05/18/2014 by Gabe Isabel MD at [facility] N/A: Cervical Vertebrae CSV-40-14 / / CSV-40-14 Description:14MM X 4.0 VARIA BLE BONE SCREWS MEDITECH [id number] - [id number] Implanted:Qty : 1 on 05/18/2014 by Gabe Isabel MD at [facility] N/A: Cervical Vertebrae [id number] / / [id number] Description:16MM PIRANNA CER VICAL PLATE MEDITECH Procedures Procedure Name Priority Date/Time Associated Diagnosis Comments CBC W PLT NO DIFF Routine 07/08/2024 7:5 2 AM CRITICAL CARE RN Pre-op evaluation BASIC METABOLIC PANEL Routine 07/08/2024 7:52 AM CRITICAL CARE RN Pre-op evaluation OCCULT BLOOD IFOBT STOOL Routine 10/07/2023 11:42 AM CDT Screening for colon cancer XR MAMMO MARGARITA BILAT SCREEN Routine 10/02/2023 4:33 PM CRITICAL CARE RN Visit for screening mammogram LIPID PANEL W REFLEX MEASURED LDL Routine 08/16/2023 8:14 AM CRITICAL CARE RN Screening for lipid disorders from Last 3 Months or Most Recently Relevant to Health Maintenance Results * CBC W PLT NO DIFF (07/08/2024 7:52 AM CRITICAL CARE RN) WHITE BLOOD CELL COUNT 8.3 3.8 - 10.8 Thousand/u L [facility] RED BLOOD CELL COUNT 4.34 3.80 - 5.10 Million/uL [facility] HEMOGLOBIN 12.4 11.7 - 15.5 g/dL [facility] HEMATOCRIT 37.9 35.0 - 45.0 % [facility] MCV 87.3 80.0 - 100.0 fL [facility] MCH 28.6 27.0 - 33.0 pg [facility] MCHC 32.7 32.0 - 36.0 g/dL [facility] Comment: For adults, a slight decrease in the calculated MCHC value (in the range of 30 to 32 g/dL) is most likely not clinically significant; however, it should be interpreted with caution in correlation with other red cell parameters and the patient's clinical condition. RDW 12.5 11.0 - 15.0 % [facility] PLATELET COUNT 336 140 - 400 Thousand/u L [facility] MPV 10.6 7.5 - 12.5 fL [facility] Blood BLOOD SPECIMEN / Unknown 07/08/2024 7:52 AM CRITICAL CARE RN 07/08/2024 7:53 AM CRITICAL CARE RN us Marilia Merrill MD HEMATOLOGY Final R esult [facility] [address] [place] [address], [facility] [address] [place] [address] * (ABNORMAL) BASIC METABOLIC PANEL (07/08/2024 7:52 AM CRITICAL CARE RN) Pathologist [facility] GLUCOSE 107(H) 65 - 99 mg/dL [facility] Comment: Fasting reference interval For someone without known diabetes, a glucose value between 100 and 125 mg/dL is consistent with prediabetes and should be confirmed with a follow-up test. UREA NITROGEN (BUN) 21 7 - 25 mg/dL [facility] CREATININE 0.89 0.50 - 1.03 mg/dL [facility] [...] CALCIUM 9.4 8.6 - 10.4 mg/dL [facility] Blood BLOOD SPECIMEN / Unknown 07/08/2024 7:52 AM CRITICAL CARE RN 07/08/2024 7:53 AM CRITICAL CARE RN Marilia Merrill MD CHEMISTRY Final R esult [facility] [address] [place] [address], [facility] [address] [place] [address] * OCCULT BLOOD IFOBT STOOL [[id number]] (10/07/2023 11:42 AM CDT) STOOL BLOOD ,IFOBT Negative Negative 10/11/2023 10:24 AM CDT [facility] Stool STOOL SPECIMEN / Unknown Non-Blood / Unknown 10/07/2023 11:42 AM CDT 10/10/2023 11:42 AM CDT Marilia Merrill MD LABORATORY Final R esult [facility] [address] [place] [address], [place] [phone] * XR MAMMO MARGARITA BILAT SCREEN (10/02/2023 4:33 PM CRITICAL CARE RN) Anatomical Region Laterality Modality BREASTS, Breast Left, Breast Right Bilateral Mammography Impressions 10/03/2023 3:11 PM CRITICAL CARE RN There is no radiographic evidence for malignancy. Recommend annual mammograms. MAMMOGRAM ASSESSMENT: ACR 1 Negative PATIENTS: You will also receive a letter with your examination results in an easy to read format. If you have questions about your results, please contact your referring provider. Narrative 10/03/2023 3:11 PM CRITICAL CARE RN For Patients: As a result of the Century Cures Act, medical imaging exams and procedure reports are released immediately into your electronic medical record. You may view this report before your referring provider. If you have questions, please contact your health care provider. XR MAMMO MARGARITA BILAT SCREEN [[id number]] CLINICAL HISTORY: This is an asymptomatic 58 [...] * LIPID PANEL W REFLEX MEASURED LDL [[id number]] (08/16/2023 8:14 AM CRITICAL CARE RN) CHOLESTEROL,TOTAL 195 100 - 199 mg/dL 08/16/2023 7:21 PM CRITICAL CARE RN [facility] Comment: Cholesterol, Total Reference Ranges Desirable <200 mg/dL Borderline 200-239 mg/dL High >=240 mg/dL TRIGLYCERIDES 64 <150 mg/dL 08/16/2023 7:21 PM CRITICAL CARE RN [facility] HDL CHOLESTEROL 81 >40 mg/dL 7:21 PM CRITICAL CARE RN [facility] NON-HDL CHOLESTEROL 114 <145 mg/dl 08/16/2023 7:21 PM CRITICAL CARE RN [facility] CHOL/HDL RATIO 2.41 <4.50 08/16/2023 7:21 PM CRITICAL CARE RN [facility] LDL CHOLESTEROL 101 <=130 mg/dL 08/16/2023 7:21 PM CRITICAL CARE RN [facility] VLDL CHOLESTEROL 13 <=30 mg/dL 08/16/2023 7:21 PM CRITICAL CARE RN [facility] PROVIDER ORDERED STATUS RANDOM 08/16/2023 7:21 PM [facility] Blood BLOOD SPECIMEN / Unknown Venipuncture / Unknown 08/16/2023 8:14 AM CRITICAL CARE RN 08/16/2023 8:26 AM CRITICAL CARE RN us Marilia Merrill MD CHEMISTRY Final R esult [facility] [address] [place] [address], from Last 3 Months or Most Recently Relevant to Health Maintenance Insurance [place] [id number] Advance Directives * Full Code (Latest Code Status on File) Date Activated Date Inactivated Comments 05/18/2014 4:29 PM 05/19/2014 6:10 PM * Full Code Date Activated Date Inactivated Comments 05/18/2014 12:49 PM 05/18/2014 4:29 PM Care Teams Video Arcade Manager Relationship Specialty Start Date End Date Marilia Merrill MD [address] [place] [address] PCP - General Family Practice 11/25/19
--- OUTSIDE RECORDS SUMMARY | 2024-09-15 15:46 | XMS_ITS | Encounter Summary ---
Author Organization [email or web address] Address [address] [place] [address] Care Team Providers Care Process Development Chemist Name Role Phone Marilia Merrill MD Primary Care Provider [phone] Reason for Referral * Procedure/Equipment (Routine) - Incomplete Specialty Diagnoses / Procedures Referred By Contjerson t Referred To Contact Diagnoses S/P revision of total knee, right Procedures XR Knee Rt 3 Views Pelon Lira MD [address] [place] [address] Phone: tel: fax: Referral ID Status Reason Start Date Expiration Date V isits Requested Visits Authorized [id number] Incomplete 08/11/2024 11/10/2025 1 1 ORATION OFFICER Reason for Visit * Reason Comments Post-Op Follow Up Right TKA Revision Encounter Details Date Type Department Care Team (Late st Contact Info) Description 08/11/2024 8:40 AM CORPORATION OFFICER Office Visit [facility] [address] [facility] [place], [place] [address] Pelon Lira MD [address] [place] [id number] S/P revision of total knee, right (Primary Dx) Social History Tobacco Use Types Packs/Day Years Used Date Smoking Tobacco: Never Smokeless Tobacco: Never Alcohol Use Standard Drinks/Week Comments Yes 0 (1 standard drink = 0.6 oz pur e alcohol) weekly [facility] Utilities Answer Date Recorded In the [...] any time in the past 12 m [facility], were you homeless or living in a detention (including now)? No 07/13/2024 Comments No Sex and Gender Information Value Date Recorded Sex Assigned at Not on file Legal Sex Female 5:05 AM CDT Gender Identity Not on file Sexual Orientation Not on file documented as of this encounter Patient Instructions * Patient Instructions* Jael Short MA - 08/11/2024 8:40 AM CORPORATION OFFICER Thank you for Choosing [facility] for your health care visit today. Dr. Pelon Lira MD Orthopaedic Surgeon Medication Requests: Prescriptions are not filled on weekends or on weekdays after 3:00 PM. For all medication refills: Request a refill using [email or web address] or contact your pharmacy. What is Know Your Cost? Know Your Cost is a service for patients and patient/members to call and receive personalized cost information and estimates across our care group. The phone number is (COST) Saturday - Saturday 8 AM to 5 PM Advanced Imaging Scheduling: To schedule an MRI, Ultrasound, or Image guided injection at [facility] please call [phone]. To schedule an MRI or CT at a [facility] please call [phone]. [facility] Workers' Compensation [address] [place] [address] (Phone) Email: [email or web address] Release of Information: Radiology/Imaging [address] [place] [address] (Phone) Health Information Management [address] [place] [address] (Phone) [employer] ORATION OFFICER documented in this encounter Progress Notes * [...] in a stepwise fashion. We discssed the predatory animal exterminator recovery process and natural history of total [...] other questions or concerns in the meantime. ORATION OFFICER documented in this encounter Plan of Treatment Upcoming Encounters Date Type Department Care Team (Late st Contact Info) Description 09/22/2024 8:40 AM CORPORATION OFFICER Appointment [address] [address] Pelon Lira MD [address] [place], [place] [address] 09/23/2024 1:00 PM CORPORATION OFFICER Appointment [facility] [address] [facility] [address] [place] [address] Nasima Early, DISTRICT COMMERCIAL SUPERINTENDENT, DUST SAMPLER [address] [place], [place] [id number] documented as of this encounter Goals Goal Patient Goal Type Associated Problems Recent Progress Patient-Stated? Author Right Knee Replacement Care Plan ET PROE RIGHT KNEE No Nila Sawyer documented as of this encounter Results * XR Knee Rt 3 Views (08/11/2024 8:57 AM CORPORATION OFFICER) Anatomical Region Laterality Modality Lower Extremity, Knee Digital Ra diography 08/11/2024 8:56 AM CORPORATION OFFICER Narrative 08/11/2024 9:41 AM CORPORATION OFFICER COMPARISON: 07/13/2024 FINDINGS: The total knee arthroplasty [...] documented as of this encounter Care Teams Process Development Chemist Relationship Specialty Start Date End Date Marilia Merrill MD [address] [place] [address] PCP - General Family Practice 07/13/24 documented as of this encounter
--- OUTSIDE RECORDS SUMMARY | 2024-09-15 15:46 | XMS_ITS | Clinical Summary ---
Author Organization [facility] Mobile Address [address], [place] [address] Care Team Providers Care Site Administrator Name Role Phone Marilia Merrill MD Primary Care Provider [phone] Source Comments You are receiving this document as you are listed as the primary care provider,follow-up provider, or the patient has been referred to you for consultation.This is in compliance with the Medicare andOhio[facility] Hospital[facility] EHR Incentive Program,which states Providers who transition their patient to another setting of careor provider of care or refers their patient to another provider of care shouldprovide summary care record for each transition of care or referral. Voiceit Allergies Active Allergy Reactions Criticality Noted Date [...] Indications: Pain 100 Tablet 07/14/2024 2:09 PM FISH SKINNING MACHINE FEEDER 4 Active senna (SENOKOT) 8.6 MG tabletIndicati ons:Constipati on Take 2 Tablets by mouth daily at bedtime. Take while on narcotics. Hold for loose stools. 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 Alvarez 01/14/2023 Failed total knee arthroplasty 01/10/2023 Overview (01/10/2023): Added automatically from request for surgery [id number] Primary osteoarthritis of right knee 11/16/2022 Overview (11/16/2022): Added automatically from request for surgery [id number] HTN (hypertension) 11/13/2022 HUI (obstructive sleep apnea) 02/14/2017 DDD (degenerative disc disease), cervical 2013 Overview (01/10/2023): C4-5 and C5-6 levels Other atopic dermatitis and related conditions 0 03/05/2007 Asthma 03/05/2007 Insomnia, unspecified 03/05/2007 Encounters Date Type Department Care Team Description 08/25/2024 E-Visit [address] [address] Mychart, Generic Provider 08/12/2024 E-Visit [facility] [place] [address] [facility] [address] [place] [address]. [place] [address] Nasima Early, SPANISH LECTURER, PARKS RECREATION DIRECTOR Chief Comp: QUESTIONS, GENERAL 08/11/2024 8:50 AM FISH SKINNING MACHINE FEEDER Ancillary Procedure [facility] [address] [place] [address] Pelon Lira MD S/P revision of total knee, right 08/11/2024 8:40 AM FISH SKINNING MACHINE FEEDER Office Visit [address] [address] Pelon Lira MD S/P revision of total knee, right (Primary Dx) 08/05/2024 11:00 AM FISH SKINNING MACHINE FEEDER Office Visit [facility] [place] [address] [facility] [address] [place] [address]. [place] [address] Nasima Early, SPANISH LECTURER, PARKS RECREATION DIRECTOR HUI (obstructive sleep apnea) (Primary Dx); S/P insertion of hypoglossal nerve stimulator 08/05/2024 Orders Only HIM DEPARTMENT ProviderFerdinand MD 08/05/2024 Orders Only HIM DEPARTMENT Provider, MD Ferdinand 07/31/2024 3:30 PM FISH SKINNING MACHINE FEEDER Office Visit [address] [address] Nurse, [facility] S/P revision of total knee, right (Primary Dx) 07/31/[address] [address] Pelon Lira MD Refill 07/26/2024 [facility] [address] [place] [address] 07/26/2024 sachi Wilson [address] [place] [address] 07/20/[address] [address] Pelon Lira MD Refill 07/13/2024 7:48 AM FISH SKINNING MACHINE FEEDER Anesthesia Event [facility] [address] [facility] [address] Rosie Romeo MD 07/13/2024 7:15 AM FISH SKINNING MACHINE FEEDER - 07/13/2024 11:05 AM FISH SKINNING MACHINE FEEDER Surgery [facility] [address] [facility] [place] [address] Pelon Lira MD REVISION TOTAL JOINT REPLACEMENT KNEE 07/13/2024 6:05 AM FISH SKINNING MACHINE FEEDER - 07/14/2024 2:42 PM FISH SKINNING MACHINE FEEDER Hospital Encounter [facility] [address] [place] [address]. [place] [address] Pelon Lira MD S/P revision of total knee, right (Primary Dx); Pain; Status post revision of total knee, right Discharge Disposition: Home 07/13/2024 Orders Only HIM DEPARTMENT Provider, MD Ferdinand 07/09/2024 Orders Only HIM DEPARTMENT Provider, Ferdinand, 07/06/[address] [address] Pelon Lira MD Surgery Questions 07/06/[address] [address] Pelon Lira MD Reschedule Appointment; Appt. Work In Request 07/03/2024 Orders Only [address] [address] Pelon Lira MD 06/29/2024 4:00 PM FISH SKINNING MACHINE FEEDER Office Visit [facility] [address] [facility]. [place], [place] [id number] Lesvia Packer PA-C HUI (obstructive sleep apnea) (Primary Dx); Postoperative examination 06/22/2024 Telephone [facility]ty [facility] 401 Otolaryngology [address] [place] [address] Shyam Ramos MD Appt. Needed (Pulmonary?) 06/17/2024 10:46 AM FISH SKINNING MACHINE FEEDER Anesthesia Event [facility] Surgery [address] [address] Edy Lopez MD Harvey, Laura A, APRN, CUSTOMS INSPECTOR 06/17/2024 10:45 AM FISH SKINNING MACHINE FEEDER - 06/17/2024 2:20 PM FISH SKINNING MACHINE FEEDER Surgery [facility] Surgery [address] [address] Shyam Ramos MD INSERTION/PLACEMENT HYPOGLOSSAL NERVE STIMULATOR 06/17/2024 8:41 AM FISH SKINNING MACHINE FEEDER - 06/17/2024 6:49 PM FISH SKINNING MACHINE FEEDER Hospital Encounter [address] [address] Shyam Ramos MD Pain (Primary Dx) Discharge Disposition: Home 06/17/2024 Orders Only HIM DEPARTMENT Provider, MD Ferdinand from Last 3 Months Immunizations Immunization Administration Dates Next Due Fluzone Qiv Multidose Vial 0.25 (6-35 Mos) 05/17 HepA Adult (19+ yrs) 11/11/2020,09/25/2017 Influenza IIV4 (Quadrivalent) 0.5mL (23467) 04/28 Moderna Monovalent 12+ 10/19/2020,09/21/2020 Td 07/11/1999 [...] = 0.6 oz pur e alcohol) weekly [facility] Utilities Answer Date Recorded In the past 12 months has th e [employer], gas, oil, or water [employer] threatened to shut off services in your [...] in the past 12 m [facility], were you homeless or living in a [place] health care facility (including now)? No 07/13/2024 Comments No Sex and Gender Information Value Date Recorded Sex Assigned at Not on file Legal Sex Female 5:05 AM CDT Gender Identity Not on file Sexual Orientation Not on file Last Filed Vital Signs Vital Sign Reading Time Taken Comments Blood Pressure 100/67 07/14/2024 2:05 PM FISH SKINNING MACHINE FEEDER Pulse 68 08/05/2024 10:52 AM FISH SKINNING MACHINE FEEDER Temperature 36.4 C (97.6 F) 08/05/2024 10:52 AM FISH SKINNING MACHINE FEEDER Respiratory Rate 17 07/14/2024 2:05 PM FISH SKINNING MACHINE FEEDER Oxygen Saturation 97% 08/05/2024 10:52 AM FISH SKINNING MACHINE FEEDER Inhaled Oxygen Concentration - - Weight 84.6 kg (186 lb 6.4 oz) 07/13/2024 6:30 A M FISH SKINNING MACHINE FEEDER Height 165.1 cm (5' 5) 08/05/2024 10:52 AM FISH SKINNING MACHINE FEEDER Body Mass Index 32 06/17/2024 8:51 AM FISH SKINNING MACHINE FEEDER Plan of Treatment Upcoming Encounters Date Type Department Care Team (Late st Contact Info) Description 09/22/2024 8:40 AM FISH SKINNING MACHINE FEEDER Appointment [facility] [address] [place] [address] Pelon Lira MD [address] [facility] [place] [address] 09/23/2024 1:00 PM FISH SKINNING MACHINE FEEDER Appointment [facility] [address] [place] [address] Nasima Early, SPANISH LECTURER, PARKS RECREATION DIRECTOR [address] [place] [address] Health Maintenance Due Date Last [...] [employer] Implanted Type Area Pipe Line Repairer Device Identifier Shelf Expiration Date Model / Serial / Lot Tommie Bone Biomet R 1x40 - [id number] Implanted:Qty: 1 on 11/30/2022 by Shobha Alvarez MD at [facility] DEVICE Right: KNEE [employer] 03/28/2025 [id number] / 0 / [id number] Description:500 mg vancomyci n added [id number] - [id number] Implanted:Qty: 1 on 11/30/2022 by Shobha Alvarez MD at [facility] DEVICE Right: KNEE [employer] 07/24/2032 [id number] / 0 / [id number] Description:Persona cruciate retaining right size 6 PPS porous plasma spray narrow femr Rstrct Cmnt Med Unv - [id number] Implanted:Qty: 1 on 01/14/2023 by Shobha Alvarez MD at [facility] DEVICE Right: KNEE [place] 08/13/2027 [id number] / / [id number] Psn Rev Fem Cmt Ccr Pls Sz7 Rt - [id number] Implanted:Qty: 1 on 01/14/2023 by Shobha Alvarez MD at [facility] DEVICE Right: KNEE Dana Biomet - Orthopedics 07/04/2032 [id number] / / [id number] Psn Rev Tib Fx Keel Cmt Szc Rt - [id number] Implanted:Qty: 1 on 01/14/2023 by Shobha Alvarez MD at [facility] DEVICE Right: KNEE [employer] Inc 08/20/2032 [id number] / / [id number] Comp Str Hyb St 14x+30 - [id number] Implanted:Qty: 1 on 01/14/2023 by Shobha Alvarez MD at [facility] DEVICE Right: KNEE [employer] 12/11/2032 [id number] / / [id number] Comp Str Hyb St 14x+30 - [id number] Implanted:Qty: 1 on 01/14/2023 by Shobha Alvarez MD at [facility] DEVICE Right: KNEE [employer] 11/19/2032 [id number] / / [id number] Asf Ps Ve 12mm 69 Cd Rt - [id number] Implanted:Qty: 1 on 01/14/2023 by Shobha Alvarez MD at [facility] DEVICE Right: KNEE [employer] 09/21/2025 [id number] / / [id number] Tommie Bone Biomet R 1x40 - [id number] Implanted:Qty: 1 on 01/14/2023 by Shobha Alvarez MD at [facility] DEVICE Right: KNEE [employer] 01/25/2025 [id number] / / [id number] Tommie Bone Biomet R 1x40 - [id number] Implanted:Qty: 1 on 01/14/2023 by Shobha Alvarez MD at [facility] DEVICE Right: KNEE [employer] 05/28/2025 [id number] / / [id number] Tommie Bone Biomet R 1x40 - [id number] Implanted:Qty: 1 on 01/14/2023 by Shobha Alvarez MD at [facility] DEVICE Right: KNEE [employer] 05/28/2025 [id number] / / [id number] Rstrct Cmnt Med Unv - [id number] Implanted:Qty: 1 on 01/14/2023 by Shobha Alvarez MD at [facility] DEVICE Right: KNEE Nicol 08/03/2027 U141-1328 / / [id number] Ld Stimulation Inspire - [id number] Implanted:Qty: 1 on 06/17/2024 by Shyam Ramos MD at [facility] DEVICE Right: NECK Inspire Med 10/27/2026 4063 / [id number] / Generator Pulse Inspire Iv Ipg - [id number] Implanted:Qty: 1 on 06/17/2024 by Shyam Ramos MD at [facility] DEVICE Right: CHEST Inspire Med 12/25/2026 3028 / [id number] / Ld Stim - [id number] Implanted:Qty: 1 on 06/17/2024 by Shyam Ramos MD at [facility] DEVICE Right: CHEST Inspire Med 02/03/2027 4340 / [id number] / Tommie Bone Biomet R 1x40 - [id number] Implanted:Qty: 1 on 07/13/2024 by Pelon Lira MD at [facility] DEVICE Right: KNEE [employer] 09/25/2026 [id number] / / [id number] Tommie Bone Biomet R 1x40 - [id number] Implanted:Qty: 1 on 07/13/2024 by Pelon Lira MD at [facility] DEVICE Right: KNEE [employer] 09/25/2026 [id number] / / [id number] Attune Fem Dist Aug Sz4 4mm - [id number] Implanted:Qty: 1 on 07/13/2024 by Pelon Lira MD at [facility] DEVICE Right: KNEE DePuy Synthes - Joint Recon 02/25/2034 1547-04-001 / / [id number] Attune Fem Crs Rt Sz4 - [id number] Implanted:Qty: 1 on 07/13/2024 by Pelon Lira MD at [facility] DEVICE Right: KNEE DePuy Synthes - Joint Recon 12/26/2033 1504-40-204 / / [id number] Sleeve Tib M/L 29mm - [id number] Implanted:Qty: 1 on 07/13/2024 by Pelon Lira MD at [facility] DEVICE Right: KNEE DePuy Synthes - Joint Recon 07/28/2032 1511-11-201 / / [id number] Prs Fit Str Stem 14x60 - [id number] Implanted:Qty: 1 on 07/13/2024 by Pelon Lira MD at [facility] DEVICE Right: KNEE DePuy Synthes - Joint Recon 01/25/2034 1513-14-060 / / [id number] Base Tib Attune Rev Sz2 - [id number] Implanted:Qty: 1 on 07/13/2024 by Pelon Lira MD at [facility] DEVICE Right: KNEE UNKNOWN 05/28/2032 [id number] / / [id number] Attune Fem Dist Aug Sz4 4mm - [id number] Implanted:Qty: 1 on 07/13/2024 by Pelon Lira MD at [facility] DEVICE Right: KNEE DePuy Synthes - Joint Recon 02/25/2034 1547-04-001 / / [id number] Stem 12mm X 60mm Implanted:Qty: 1 on 07/13/2024 by Pelon Lira MD at [facility] Right: KNEE 11/25/2029 1513-12-060 / / [id number] Tibial Plateform Size 4 X 20mm Implanted:Qty: 1 on 07/13/2024 by Pelon Lira MD at [facility] Right: KNEE 09/25/2030 1516-50-420 / / [id number] Revision Femoral Sleeve 30mm Implanted:Qty: 1 on 07/13/2024 by Pelon Lira MD at [facility] Right: KNEE 05/28/2034 151- / / [id number] Explanted Type Area Pipe Line Repairer Device Identifier Shelf Expiration Date Model / Serial / Lot Patella All Poly Ply 32mm - [id number] Implanted:Qty: 1 on 11/30/2022 by Shobha Alvarez MD at [facility] Explanted:Qty: 1 on 01/14/2023 by Shobha Alvarez MD at [facility] DEVICE Right: KNEE [employer] Inc 10/17/2027 [id number] / 0 / [id number] Psn Mc Ve Asf 14mm Sz6-7 Rt - [id number] Implanted:Qty: 1 on 11/30/2022 by Shobha Alvarez MD at [facility] Explanted:Qty: 1 on 01/14/2023 by Shobha Alvarez MD at [facility] DEVICE Right: KNEE [employer] Inc 10/29/2025 [id number] / 0 / [id number] Comp Tib Por 2 Peg [facility] Rt - [id number] Implanted:Qty: 1 on 11/30/2022 by Shobha Alvarez MD at [facility] Explanted:Qty: 1 on 01/14/2023 by Shobha Alvarez MD at [facility] DEVICE Right: KNEE Dnaa Inc 05/28/2027 [id number] / 0 / [id number] Procedures Procedure Name Priority Date/Time Associated Diagnosis Comments XR KNEE RT 3 VIEWS Routine 08/11/2024 8: 57 AM FISH SKINNING MACHINE FEEDER S/P revision of total knee, right PULMONARY TEST SC 08/05/2024 PFT 08/05/2024 HEMOGLOBIN, BLOOD Routine 07/14/2024 7:4 6 AM FISH SKINNING MACHINE FEEDER XR KNEE RT 2 VIEWS STAT 07/13/2024 12 :20 PM FISH SKINNING MACHINE FEEDER XR KNEE RT 2 VIEWS Routine 07/13/2024 11 :00 AM FISH SKINNING MACHINE FEEDER AFB CULTURE Routine 07/13/2024 8:53 AM FISH SKINNING MACHINE FEEDER S/P revision of total knee, right ANAEROBIC CULTURE EXTENDED INCUBATION 14 DAYS Routine 07/13/2024 8:53 AM FISH SKINNING MACHINE FEEDER S/P revision of total knee, right AEROBIC CULTURE EXTENDED INCUBATION 14 DAYS Routine 07/13/2024 8:53 AM FISH SKINNING MACHINE FEEDER S/P revision of total knee, right AFB CULTURE Routine 07/13/2024 8:53 AM FISH SKINNING MACHINE FEEDER S/P revision of total knee, right EXTENDED AEROBIC/ANAEROBIC CULTURE PANEL Routine 07/13/2024 8:53 AM FISH SKINNING MACHINE FEEDER S/P revision of total knee, right FUNGUS CULTURE Routine 07/13/2024 8:53 AM FISH SKINNING MACHINE FEEDER S/P revision of total knee, right AFB CULTURE Routine 07/13/2024 8:40 AM FISH SKINNING MACHINE FEEDER S/P revision of total knee, right ANAEROBIC CULTURE EXTENDED INCUBATION 14 DAYS Routine 07/13/2024 8:40 AM FISH SKINNING MACHINE FEEDER S/P revision of total knee, right AEROBIC CULTURE EXTENDED INCUBATION 14 DAYS Routine 07/13/2024 8:40 AM FISH SKINNING MACHINE FEEDER S/P revision of total knee, right AFB CULTURE Routine 07/13/2024 8:40 AM FISH SKINNING MACHINE FEEDER S/P revision of total knee, right EXTENDED AEROBIC/ANAEROBIC CULTURE PANEL Routine 07/13/2024 8:40 AM FISH SKINNING MACHINE FEEDER S/P revision of total knee, right FUNGUS CULTURE Routine 07/13/2024 8:40 AM FISH SKINNING MACHINE FEEDER S/P revision of total knee, right SPINAL BLOCK Routine 07/13/2024 8:22 AM FISH SKINNING MACHINE FEEDER REVISION TOTAL JOINT REPLACEMENT KNEE 07/13/2024 7:23 AM FISH SKINNING MACHINE FEEDER S/P revision of total knee, right HGB A1C STAT 07/13/2024 6:31 AM FISH SKINNING MACHINE FEEDER ECG 12 LEAD INPATIENT Routine 07/13/2024 6:28 AM FISH SKINNING MACHINE FEEDER EKG 07/13/2024 LABORATORY REPORT 07/09/2024 LABORATORY REPORT 07/03/2024 INSERTION/PLACEMENT HYPOGLOSSAL NERVE STIMULATOR 06/17/2024 10:38 AM FISH SKINNING MACHINE FEEDER HUI (obstructive sleep apnea) EKG 06/17/2024 from Last 3 Months Results * XR Knee Rt 3 Views (08/11/2024 8:57 AM FISH SKINNING MACHINE FEEDER) Anatomical Region Laterality Modality Lower Extremity, Knee Digital Ra diography 08/11/2024 8:56 AM FISH SKINNING MACHINE FEEDER Narrative 08/11/2024 9:41 AM FISH SKINNING MACHINE FEEDER COMPARISON: 07/13/2024 FINDINGS: The total knee arthroplasty [...] in AM POD #1 (07/14/2024 7:46 AM FISH SKINNING MACHINE FEEDER) Hemoglobin 9.8(L) 12.0 - 15.5 g/dL 07/14/2024 7:57 AM FISH SKINNING MACHINE FEEDER [facility] Blood Venipuncture / Unknown 07/14/2024 7:46 AM FISH SKINNING MACHINE FEEDER 07/14/2024 7:52 AM FISH SKINNING MACHINE FEEDER us Jazlyn Zuniga RN, SPANISH LECTURER PARKS RECREATION DIRECTOR LAB_1 Final Result [facility] [address] [place] [address], [facility] * XR Knee Rt 2 Views (07/13/2024 12:20 PM FISH SKINNING MACHINE FEEDER) Only the most recent of2 resultswithin the time period is included. Anatomical Region Laterality Modality Lower Extremity, Knee Radiograph ic Imaging 07/13/2024 11:5 1 AM FISH SKINNING MACHINE FEEDER Impressions 07/13/2024 2:35 PM FISH SKINNING MACHINE FEEDER Postsurgical follow-up. Narrative 07/13/2024 2:35 PM FISH SKINNING MACHINE FEEDER COMPARISON: Earlier same day, May 26, 2024. [...] Result * Fungus Culture (07/13/2024 8:53 AM FISH SKINNING MACHINE FEEDER) Only the most recent of2 resultswithin the time period is included. Fungus Culture No Fungus Isolated 08/13/2024 7:53 AM FISH SKINNING MACHINE FEEDER [facility] Fungus Smear No Yeast or Fungal Elements Found 08/13/2024 7:53 AM FISH SKINNING MACHINE FEEDER [facility] Tissue ENTIRE KNEE REGION / Unknown 07/13/2024 8:53 AM FISH SKINNING MACHINE FEEDER 07/13/2024 9:47 AM FISH SKINNING MACHINE FEEDER Pelon Lira MD LAB_1 Final Result [address] [address], [facility] * Anaerobic Culture Extended Incubation 14 Days (07/13/2024 8:53 AM FISH SKINNING MACHINE FEEDER) Only the most recent of2 resultswithin the time period is included. Anaerobic Culture, Extended Incubation 14 Days No Anaerobes Isolated 07/27/2024 7:22 AM FISH SKINNING MACHINE FEEDER [facility] Tissue ENTIRE KNEE REGION / Unknown 07/13/2024 8:53 AM FISH SKINNING MACHINE FEEDER Pelon Lira MD LAB_1 Final Result Performing Organization Address [facility] de Phone Number [address] * Aerobic Culture Extended Incubation 14 Days (07/13/2024 8:53 AM FISH SKINNING MACHINE FEEDER) Only the most recent of2 resultswithin the time period is included. Aerobic Culture Extended Incubation No Growth 07/27/2024 3:19 PM [facility] Gram Smear Rare PMN's Present 07/27/2024 3:19 PM [facility] Gram Smear No Organisms Seen 07/27/2024 3:19 PM [facility] Tissue ENTIRE KNEE REGION / Unknown 07/13/2024 8:53 AM FISH SKINNING MACHINE FEEDER Pelon Lira MD LAB_1 Final Result Performing Organization Address [address] * AFB Culture (07/13/2024 8:53 AM FISH SKINNING MACHINE FEEDER) Only the most recent of2 resultswithin the time period is included. AFB Culture No Mycobacteria Isolated 09/09/2024 8:15 AM [facility] AFB Smear No Acid Fast Bacilli Found 09/09/2024 8:15 AM [facility] Tissue ENTIRE KNEE REGION / Unknown 07/13/2024 8:53 AM FISH SKINNING MACHINE FEEDER Pelon Lira MD LAB_1 Final Result Performing Organization Address [facility] Co de Phone Number [address] * SPINAL BLOCK (07/13/2024 8:22 AM FISH SKINNING MACHINE FEEDER) Narrative EXTERNAL RESULTS - 07/13/2024 8:22 AM FISH SKINNING MACHINE FEEDER Rosie Romeo MD 07/13/2024 8:22 AM Spinal [...] needle used Attempts: 1 Redirects: 1 Monitoring: supervisor pig machine and continuous pulse ox CSF: adequate CSF [...] RESULTS * Hgb A1C (07/13/2024 6:31 AM [facility]) Hemoglobin A1C 5.6 <=5.6 % 07/13/2024 7:46 AM [facility] Estimated Average Glucose (Calc) 114 < 117 mg/dL 07/13/2024 7:46 AM [facility] Comment:Estimated average gl ucose (eAG) converts A1c into glucose units (mg/dL) and estimates average glucose over the past approximately 3 months. The eAG reference interval (<117 mg/dL) corresponds to an A1c of <5.7%. Blood Venipuncture / Unknown 07/13/2024 6:31 AM FISH SKINNING MACHINE FEEDER 07/13/2024 6:36 AM FISH SKINNING MACHINE FEEDER us Pelon Lira MD LAB_1 Final Result Performing Organization Address [facility] Co de Phone Number [facility] [address] [place] [address], [facility] * ECG 12 Lead Inpatient (07/13/2024 6:28 AM FISH SKINNING MACHINE FEEDER) Ventricular Rate 64 BPM [facility] Atrial Rate 64 BPM [facility] P-R Interval 170 ms [facility] QRS Duration 106 ms [facility] QT 430 ms [facility] QTC 443 ms [facility] P [place] 46 degrees [facility] R [place] 72 degrees [facility] T [place] 69 degrees [facility] 07/13/2024 6:28 AM FISH SKINNING MACHINE FEEDER Narrative [facility] - 07/13/2024 9:13 AM FISH SKINNING MACHINE FEEDER Sinus rhythm Normal ECG When compared with ECG of 15-NOV-2022 16:08, No significant change was found Confirmed by Jes Heller ([id number]) on 07/13/2024 9:13:10 AM Procedure Note Jes Heller MD - 07/13/2024 Sinus rhythm Normal ECG When compared with ECG of 15-NOV-2022 16:08, No significant change was found Confirmed by Jes Heller ([id number]) on 07/13/2024 9:13:10 AM us Pelon Lira MD PN ECG ORDERABLES Final Resul t Performing Organization Address [facility] Co de Phone Number [facility] [address] [place] [address] * EKG (07/13/2024) Only the most recent [...] 11:14 AM 11/30/2022 6:19 PM Care Teams Site Administrator Relationship Specialty Start Date End Date Marilia Merrill MD [address] [place] [address] PCP - General Family Practice 07/13/24
--- OUTSIDE RECORDS SUMMARY | 2024-09-15 15:46 | XMS_ITS | Encounter Summary ---
Author Organization [facility] Address [address], [place] [address] Care Team Providers Care Fitness Leader Name Role Phone Mrailia Merrill MD Primary Care Provider [phone] Encounter Details Date Type Department Care Team (Late st Contact Info) Description 11/03/2015 Notes/Orders [facility] [address] [place] [address] Donald Alvarez DPM [address] [facility] [place] [address] Social History Tobacco Use Types Packs/Day Years [...] st Contact Info) Description 09/22/2024 8:40 AM TEACHER [employer] Appointment [facility] [address] [place] [address] Pelon Lira MD [address] [facility] [place] [id number] 09/23/2024 1:00 PM [employer] Appointment [facility] [address] [place] [address]. [place], [place] [id number] Nasima Early, NURSING SPECIALIST, ANGLE SHEAR SET UP OPERATOR [address] [place] [address] documented as of this encounter Visit Diagnoses Not on filedocumented in this encounter Care Teams Fitness Leader Relationship Specialty Start Date End Date Marilia Merrill MD [address] [place] [address] PCP - General Family Practice 07/13/24 documented as of this encounter
--- OUTSIDE RECORDS SUMMARY | 2024-09-15 15:46 | XMS_ITS | Encounter Summary ---
Author Organization [facility] Address [address], [place] [address] Care Team Providers Care Field Associate Name Role Phone Marilia Merrill MD Primary Care Provider [phone] Encounter Details Date Type Department Care Team (Latest Contact Info) Description 08/05/2024 Orders Only HIM DEPARTMENT ProviderFerdinand [place] [address] Social History Tobacco Use Types Packs/Day Years Used Date Smoking Tobacco: Never Smokeless Tobacco: Never Alcohol Use Standard Drinks/Week Comments Yes 0 (1 standard drink = 0.6 oz pur e alcohol) weekly [facility] Utilities Answer Date Recorded In the past 12 months has e [employer], gas, oil, or water [employer] threatened to shut off services in your [...] in the past 12 m [facility], were you homeless or living in a long term (including now)? No 07/13/2024 Comments No Sex and Gender Information Value Date Recorded Sex Assigned at Not on file Legal Sex Female 5:05 AM CDT Gender Identity Not on file Sexual Orientation Not on file documented as of this encounter Plan of Treatment Upcoming Encounters Date Type Department Care Team (Late st Contact Info) Description 09/22/2024 8:40 AM TRUCK LOADER Appointment [facility] [address] [place] [address] Pelon Lira MD [address] [facility] [place] [address] 09/23/2024 1:00 PM TRUCK LOADER Appointment [facility] [address] [place] [address]. [place] [address] Nasima Early, RUGBY UNION FOOTBALLER, UNIFORM PATROL POLICE OFFICER [address] [place], [place] [phone] documented as of this encounter Goals Goal Patient Goal Type Associated Problems Recent Progress Patient-Stated? Author Right Knee Replacement Care Plan ET PROE RIGHT KNEE No Nila Sawyer documented as of this encounter Procedures Procedure Name Priority Date/Time Associated Diagnosis Comments PULMONARY TEST UT 08/05/2024 documented in this encounter Results * PULMONARY TEST UT (08/05/2024) us Interface Provider DUMMY/OTHER/AR Final Resu lt documented in this encounter Visit Diagnoses Not on filedocumented in this encounter Additional Health Concerns Active Problems Noted Date Diagnosed Date ET PROE RIGHT KNEE 01/14/2023 ET PROE SHELL PROBLEM TEMPLATE 05/27/2024 documented as of this encounter Care Teams Field Associate Relationship Specialty Start Date End Date Marilia Merrill MD [address] [place] [address] PCP - General Family Practice 07/13/24 documented as of this encounter
--- OUTSIDE RECORDS SUMMARY | 2024-09-15 15:46 | XMS_ITS | Continuity of Care Document ---
Author Organization [facility] Address [address] [place] [address] Phone Care Team Providers Care Business Mail Entry Clerk Name Role Phone Gabe Isabel MD Unavailable [...] Providers Copied on Encounter [facility], [address], [place], [place], [id number], [place] tel:[phone] [facility] No Information 6 Maame Bernal. [facility], [address] [facility] , [place], [address], [place]. tel:[phone] Office/Outpat ient Visit,Est, Low [facility], [address], [place], [place], [address], tel:[phone] [facility] No Information 5 Maame Bernal. [facility], [address] [facility] [place], [address], [place]. tel:[phone] Referring Provider: Hayden Zaldivar, [facility] Shikha [place] , [place], [address]. tel:[phone] [facility], [address], [place], [place], [address], tel:[phone] [facility] Unspecified nerve root and plexus disorder 4 Maame Bernal. [facility], [address] [facility] [place], [address], [place]. tel:[phone] Referring Provider: Hayden Zaldivar [facility] [place], [address]. tel:[phone] [facility], [address] [facility] [address], [place], [address], [place] tel:[phone] [facility] No Information 4 Maame Bernal. [facility], [address] [facility] [place], [address], [place]. tel:[phone] Referring Provider: Hayden Zaldivar [facility] [place], [address]. tel:[phone] Family History Family Member Type Diagnosis Age At Onset No Information Payers Payer name Insurance type Covered republican ID Jean whitehead(s) [facility] [id number] Social History Type Description Quantity Date Captured [...]
--- OUTSIDE RECORDS SUMMARY | 2024-09-15 15:46 | XMS_ITS | Encounter Summary ---
Author Organization [facility] Address [address], [place] [address] Care Team Providers Care Industrial Truck Driver Name Role Phone Marilia Merrill MD Primary Care Provider [phone] Encounter Details Date Type Department Care Team (Late st Contact Info) Description 11/12/2014 Orders Only [facility] [address] [place] [id number] Donald Alvarez DPM [address] [facility] [place] [address] Nonunion of joint fusion Social History Tobacco [...] st Contact Info) Description 09/22/2024 8:40 AM CABIN WORKER Appointment [facility] [address] [place] [address] Pelon Lira MD [address] [facility] [address] [place] [address] 09/23/2024 1:00 PM CABIN WORKER Appointment [facility]ty [facility] [address] [facility]. [place], [place] [phone] Nasima Early, SUPERVISORY IT SPECIALIST, CUSTOMER ASSOCIATE [address] [place] [address] documented as of this encounter Visit Diagnoses Diagnosis Nonunion of joint fusion documented in this encounter Care Teams Industrial Truck Driver Relationship Specialty Start Date End Date Marilia Merrill MD [address] [place] [address] PCP - General Family Practice 07/13/24 documented as of this encounter
--- OUTSIDE RECORDS SUMMARY | 2024-09-15 15:46 | XMS_ITS | Encounter Summary ---
Author Organization [facility] Address [address], [place] [address] Care Team Providers Care Ferruler Name Role Phone Marilia Merrill MD Primary Care Provider [phone] Reason for Visit * Procedure/Equipment (Routine) - Incomplete Specialty Diagnoses / Procedures Referred By Fawad delarosa Referred To Contact Diagnoses S/P revision of total knee, right Procedures XR Knee Rt 3 Views Pelon Lira MD [address] [facility] [place] [address] Phone: tel: fax: Referral ID Status Reason Start Date Expiration Date V isits Requested Visits Authorized [id number] Incomplete 08/11/2024 11/10/2025 1 1 Encounter Details Date Type Department Care Team (Late st Contact Info) Description 08/11/2024 8:50 AM GAME DESIGNER/CREATIVE DIRECTOR Ancillary Procedure [facility] [address] [place], [place] [address] Pelon Lira MD [address] [facility] [address] [place] [id number] S/P revision of total knee, right Social History Tobacco Use Types Packs/Day Years Used Date Smoking Tobacco: Never Smokeless Tobacco: Never Alcohol Use Standard Drinks/Week Comments Yes 0 (1 standard drink = 0.6 oz pur e alcohol) weekly [facility] Utilities Answer Date Recorded In the past 12 months has [employer], gas, oil, or water company threatened to [...] time in the past 12 m [facility], were you homeless or living in a [...] st Contact Info) Description 09/22/2024 8:40 AM GAME DESIGNER/CREATIVE DIRECTOR Appointment [facility] [address] [facility] [place] [address] Pelon Lira MD [address] [facility] [place] [address] 09/23/2024 1:00 PM GAME DESIGNER/CREATIVE DIRECTOR Appointment [facility] [address] [facility] [place] [address] Nasima Early, MARKETING EDITOR, STEWARDESSES TEACHER [address] [place] [address] documented as of this encounter Goals Goal Patient Goal Type Associated Problems Recent Progress Patient-Stated? Author Right Knee Replacement Care Plan ET PROE RIGHT KNEE No Nila Sawyer documented as of this encounter Procedures Procedure Name Priority Date/Time Associated Diagnosis Comments XR KNEE RT 3 VIEWS Routine 08/11/2024 8: 57 AM GAME DESIGNER/CREATIVE DIRECTOR S/P revision of total knee, right documented in this encounter Results * XR Knee Rt 3 Views (08/11/2024 8:57 AM GAME DESIGNER/CREATIVE DIRECTOR) Anatomical Region Laterality Modality Lower Extremity, Knee Digital Ra diography 08/11/2024 8:56 AM GAME DESIGNER/CREATIVE DIRECTOR Narrative 08/11/2024 9:41 AM GAME DESIGNER/CREATIVE DIRECTOR COMPARISON: 07/13/2024 FINDINGS: The total knee arthroplasty [...] documented as of this encounter Care Teams Ferruler Relationship Specialty Start Date End Date Marilia Merrill MD [address] [place] [address] PCP - General Family Practice 07/13/24 documented as of this encounter
--- OUTSIDE RECORDS SUMMARY | 2024-09-15 15:46 | XMS_ITS | Encounter Summary ---
Author Organization [facility] Address [address], [place] [address] Care Team Providers Care Network Planner Name Role Phone Marilia Merrill MD Primary Care Provider [phone] Encounter Details Date Type Department Care Team (Late st Contact Info) Description 11/10/2015 Orders Only [facility] [address] [place] [address] Donald Alvarez DPM [address] [facility] [place] [address] Social History Tobacco Use Types Packs/Day Years [...] st Contact Info) Description 09/22/2024 8:40 AM MANAGER APPLE Appointment [facility] [address] [place] [address] Pelon Lira MD [address] [facility] [place] [address] 09/23/2024 1:00 PM MANAGER APPLE Appointment Specialty [facility] [address] [facility] [place] [address] Nasima Early, PNEUMATIC JACK OPERATOR, DIRECTOR DIGITAL MARKETING [address] [place] [address] documented as of this encounter Visit Diagnoses Not on filedocumented in this encounter Care Teams Network Planner Relationship Specialty Start Date End Date Marilia Merrill MD [address] [place] [address] PCP - General Family Practice 07/13/24 documented as of this encounter
--- OUTSIDE RECORDS SUMMARY | 2024-09-15 15:46 | XMS_ITS | Encounter Summary ---
Author Organization [facility] Address [address], [place] [address] Care Team Providers Care Cooker Sulfite Name Role Phone Marilia Merrill MD Primary Care Provider [phone] Encounter Details Date Type Department Care Team (Late st Contact Info) Description 07/26/2024 sachi Wilson [address] [place] [address] Social History Tobacco Use Types Packs/Day Years Used Date Smoking Tobacco: Never Smokeless Tobacco: Never Alcohol Use Standard Drinks/Week Comments Yes 0 (1 standard drink = 0.6 oz pur e alcohol) weekly [facility] Utilities Answer Date Recorded In the past 12 months has e [employer], gas, oil, or water [employer] threatened to shut off services in your [...] any time in the past 12 m [facility], were you homeless or living in [...] st Contact Info) Description 09/22/2024 8:40 AM GRAIN PACKER Appointment [facility] [address] [place] [address] Pelon Lira MD [address] [facility] [place] [address] 09/23/2024 1:00 PM GRAIN PACKER Appointment Specialty Center [facility] [address] [place] [address]. [place] [address] Nasima Early, MOISTURE CONDITIONER OPERATOR, CHECKER PRODUCT DESIGN [address] [place], [place] [phone] documented as of this encounter Goals Goal [...] documented as of this encounter Care Teams Cooker Sulfite Relationship Specialty Start Date End Date Marilia Merrill MD [address] [place] [address] PCP - General Family Practice 07/13/24 documented as of this encounter
--- OUTSIDE RECORDS SUMMARY | 2024-09-15 15:46 | XMS_ITS | Encounter Summary ---
Author Organization [facility] Address [address] [address] Care Team Providers Care Personal Injury Legal Assistant Name Role Phone Marilia Merrill MD Primary Care Provider [phone] Encounter Details Date Type Department Care Team (Latest Contact Info) Description 08/05/2024 Orders Only HIM DEPARTMENT ProviderFerdinand [place] [address] Social History Tobacco Use Types Packs/Day Years Used Date Smoking Tobacco: Never Smokeless Tobacco: Never Alcohol Use Standard Drinks/Week Comments Yes 0 (1 standard drink = 0.6 oz pur e alcohol) weekly [facility] Utilities Answer Date Recorded In the past 12 months has e [employer], gas, oil, or water [employer] threatened to shut off services in your [...] any time in the past 12 m [facility], were you homeless or living in a long-term (including now)? No 07/13/2024 Comments No Sex and Gender Information Value Date Recorded Sex Assigned at Not on file Legal Sex Female 5:05 AM CDT Gender Identity Not on file Sexual Orientation Not on file documented as of this encounter Plan of Treatment Upcoming Encounters Date Type Department Care Team (Late st Contact Info) Description 09/22/2024 8:40 AM DRAW FURNACE TENDER Appointment [facility] [address] [place] [address] Pelon Lira MD [address] [facility] [place] [address] 09/23/2024 1:00 PM DRAW FURNACE TENDER Appointment Specialty [facility] [address] [place] [address]. [place] [address] Nasima Early, BURGLAR ALARM MECHANIC, SCIENCE EDUCATION PROFESSOR [address] [place], [place] [phone] documented as of this encounter Goals Goal [...] documented as of this encounter Care Teams Personal Injury Legal Assistant Relationship Specialty Start Date End Date Marilia Merrill MD [address] [place] [address] PCP - General Family Practice 07/13/24 documented as of this encounter
--- OUTSIDE RECORDS SUMMARY | 2024-09-15 15:46 | XMS_ITS | Encounter Summary ---
Author Organization [facility] Address [address] [address] Care Team Providers Care Wet Process Miller Name Role Phone Marilia Merrill MD Primary Care Provider Reason for Visit * Reason Comments Follow-up INSPIRE Encounter Details Date Type Department Care Team (Late st Contact Info) Description 08/05/2024 11:00 AM CFO CONTROLLER Office Visit [facility] [address] [place] [address]. [place], [place] [phone] Nasima Early, LEATHER GOODS I ASSEMBLER, AEROSPACE QUALITY ENGINEER [address] [place] [address] HUI (obstructive sleep apnea) (Primary Dx); S/P insertion of hypoglossal nerve stimulator Social History Tobacco Use Types Packs/Day Years Used Date Smoking Tobacco: Never Smokeless Tobacco: Never Alcohol Use Standard Drinks/Week Comments Yes 0 (1 standard drink = 0.6 oz pur e alcohol) weekly [facility] Utilities Answer Date Recorded In the past 12 months has e electric, gas, oil, or water [employer] threatened to shut off services in your [...] any time in the past 12 m [facility], were you homeless or living in a jail (including now)? No 07/13/2024 Comments No Sex and Gender Information Value Date Recorded Sex Assigned at Not on file Legal Sex Female 5:05 AM CDT Gender Identity Not on file Sexual Orientation Not on file documented as of this encounter Last Filed Vital Signs Vital Sign Reading Time Taken Comments Blood Pressure - - Pulse 68 08/05/2024 10:52 AM CFO CONTROLLER Temperature 36.4 C (97.6 F) 08/05/2024 10:52 AM CFO CONTROLLER Respiratory Rate - - Oxygen Saturation 97% 08/05/2024 10:52 AM CFO CONTROLLER Inhaled Oxygen Concentration - - Weight - - Height 165.1 cm (5' 5) 08/05/2024 10:52 AM CFO CONTROLLER Body Mass Index - - documented in this encounter Patient Instructions * Patient Instructions* Nasima Early APRN, CNP - 08/05/2024 11:00 AM CFO CONTROLLER Use INSPIRE nightly all night. Start at level 2 tonight. If needed can go down for few days and then go up again. Remote- 0.6-1.6. go up weekly if you can Evisit 2 weeks to check in. Then will see you back in 6-8 weeks for interrogation of device Nasima Early APRN, CNP CONTROLLER CONTROLLER documented in this encounter Progress Notes * [...] of this encounter: 175 lb (79.4 kg). Middleton Score: Neck Circumference: Device Name/Type: Carefusion NOX-T3 [...] and coordinating cares. Nasima Early APRN, CNP CONTROLLER documented in this encounter Plan of Treatment Upcoming Encounters Date Type Department Care Team (Late st Contact Info) Description 09/22/2024 8:40 AM CFO CONTROLLER Appointment [facility] [address] [place] [address] Pelon Lira MD [address] [place] [address] 09/23/2024 1:00 PM CFO CONTROLLER Appointment Specialty [facility] [address] [place] [address]. [place], [place] [phone] Nasima Early APRN, CNP [address] [place] [address] documented as of this encounter Goals Goal [...] documented as of this encounter Care Teams Wet Process Miller Relationship Specialty Start Date End Date Marilia Merrill MD [address] [place] [address] PCP - General Family Practice 07/13/24 documented as of this encounter
--- OUTSIDE RECORDS SUMMARY | 2024-09-15 15:47 | XMS_ITS | Encounter Summary ---
Author Organization [facility] Address [address] [place] [address] Care Team Providers Care Department Head Name Role Phone Marilia Merrill MD Primary Care Provider [phone] Encounter Details Date Type Department Care Team (Late st Contact Info) Description 08/25/2024 E-Visit [facility] [address] [place] [address] Mychart, [place] [address] Social History Tobacco Use Types Packs/Day Years Used Date Smoking Tobacco: Never Smokeless Tobacco: Never Alcohol Use Standard Drinks/Week Comments Yes 0 (1 standard drink = 0.6 oz pur e alcohol) weekly [facility] Utilities Answer Date Recorded In the past 12 months has e [employer], gas, oil, or water [employer] threatened to shut off services in your [...] were you homeless or living in a usp (including now)? No 07/13/2024 Comments No Sex and Gender Information Value Date Recorded Sex Assigned at Not on file Legal Sex Female 5:05 AM CDT Gender Identity Not on file Sexual Orientation Not on file documented as of this encounter Plan of Treatment Upcoming Encounters Date Type Department Care Team (Late st Contact Info) Description 09/22/2024 8:40 AM SHEEP FARM MANAGER Appointment [facility] [address] [facility] [place] [address] Pelon Lira MD [address] [facility] [place] [address] 09/23/2024 1:00 PM SHEEP FARM MANAGER Appointment Specialty [facility] 401 [facility]. [place], [place] [phone] Nasima Early, SHOT MAN, CUSTOMER SOLUTIONS SUPERVISOR [address] [place], [place] [phone] documented as of this encounter Goals Goal [...] documented as of this encounter Care Teams Department Head Relationship Specialty Start Date End Date Marilia Merrill MD [address] [place] [address] PCP - General Family Practice 07/13/24 documented as of this encounter
--- OUTSIDE RECORDS SUMMARY | 2024-09-15 15:47 | XMS_ITS | Encounter Summary ---
Author Organization [facility] Address [address], [place] [address] Care Team Providers Care Project Executive Name Role Phone Marilia Merrill MD Primary Care Provider [phone] Reason for Visit * Reason Comments QUESTIONS, GENERAL Entered automaticall y based on patient selection in BRAIN. Encounter Details Date Type Department Care Team (Late st Contact Info) Description 08/12/2024 E-Visit [facility] [address] [place] [address]. [place] [address] Nasima Early, LOSS PREVENTION OPERATIONS MANAGER, REFLEXOLOGIST [address] [place] [address] Chief Comp: QUESTIONS, GENERAL Social History Tobacco Use Types Packs/Day Years Used Date Smoking Tobacco: Never Smokeless Tobacco: Never Alcohol Use Standard Drinks/Week Comments Yes 0 (1 standard drink = 0.6 oz pur e alcohol) weekly [facility] Utilities Answer Date Recorded In the past 12 months has e [employer], gas, oil, or water [employer] threatened to shut off services in your [...] any time in the past 12 m [facility], were you homeless or living in a [...] st Contact Info) Description 09/22/2024 8:40 AM PROSTHETIC AIDES TEACHER Appointment [facility] [address] [facility] [place] [address] Pelon Lira MD [address] [facility] [place] [address] 09/23/2024 1:00 PM PROSTHETIC AIDES TEACHER Appointment [facility]ty [facility] [address] [place] [address]. [place] [address] Nasima Early, LOSS PREVENTION OPERATIONS MANAGER, REFLEXOLOGIST [address] [place], [place] [phone] documented as of this encounter Goals Goal [...] documented as of this encounter Care Teams Project Executive Relationship Specialty Start Date End Date Marilia Merrill MD [address] [place] [address] PCP - General Family Practice 07/13/24 documented as of this encounter
--- OUTSIDE RECORDS SUMMARY | 2024-09-15 15:47 | XMS_ITS | Clinical Summary ---
Author Organization [facility] Address [address] [place] [id number] Care Team Providers Care Sec Accountant Name Role Phone Marilia Merrill MD Primary Care Provider [phone] Social History Tobacco Use Types Packs/Day Years Used Date Smoking Tobacco: Never Assessed Adolescent Education Answer Date Record ed Getting School Help Needed Not on file 04/28 Comments Unknown Sex and Gender Information Value Date Recorded Sex Assigned at Female 08/20/2022 2:19 PM PLANT ENGINEER Legal Sex Female 3:24 AM PLANT ENGINEER Gender Identity Female 08/20/2022 2:19 PM PLANT ENGINEER Sexual Orientation Straight 08/20/2022 2: 19 PM PLANT ENGINEER Plan of Treatment Health Maintenance Due Date [...] SURGICAL PATHOLOGY EXAM Routine 07/10/2024 10:05 AM [employer] ENGINE[employer] Unspecified disorder of eyelid MA SCREENING BILATERAL W/ MARGARITA Routine 08/23/2022 11:54 AM PLANT ENGINEER Visit for screening mammogram from Last 3 Months or Most Recently Relevant to Health Maintenance Results * Surgical Pathology Exam (07/10/2024 10:05 AM PLANT ENGINEER) Case Report Surgical Pathology Report Case: [id number] Authorizing Provider: Manuel Martinez MD Collected: 07/10/2024 10:05 AM Ordering Location: [facility] Received: 07/13/2024 09:08 AM [facility] Pathologist: Tres Kaye MD Specimen: Eyelid, Lower, Left 07/15/2024 8:39 AM [facility] Final Diagnosis Skin, left lower eyelid, biopsy- Consistent with actinic keratosis with associated chronic inflammatory change, no evidence of malignancy 07/15/2024 8:39 AM [facility] Clinical Information Lesion left lower eyelid 07/15/2024 8:39 AM [facility] Gross Description A(). Eyelid, Lower, Left, : The specimen is received in formalin, labeled with the patient's name, medical record number and other identifying information designated left lower eyelid lesion. It consists of 0.1 cm fragment of white-rudd soft tissue. The specimen is submitted entirely in formalin wrapped in lens paper in 1 cassette. MCKENNA Sesay(ASCP)CM 07/13/2024 9:39 AM 07/15/2024 8:39 AM [facility] Microscopic Description Microscopic performed 07/15/2024 8:39 AM [facility] Performing Labs The technical component of this testing was completed at [facility]. Stain controls for all stains resulted within this report have been reviewed and show appropriate reactivity. 07/15/2024 8:39 AM [employer] LABORATORY Case Images 07/15/2024 8:39 AM [facility] Tissue STRUCTURE OF LEFT LOWER EYELID / Unknown 07/10/2024 10:05 AM PLANT ENGINEER 07/13/2024 9:08 AM PLANT ENGINEER us Manuel SWAIN - JACQUES Final Result LABORATORY [facility] [address], [address] [place] [address], [facility] [phone] * MA Screen Bilateral w/Margarita (08/23/2022 11:54 AM PLANT ENGINEER) Anatomical Region Laterality Modality Breast Bilateral Mammography Impressions 08/23/2022 12:42 PM PLANT ENGINEER IMPRESSION: ACR BI-RADS Category 1: Negative RECOMMENDED FOLLOW-UP: Annual routine screening mammogram The results and recommendations of this examination will be communicated to the patient. Jovita Raines MD Narrative 08/23/2022 12:42 PM PLANT ENGINEER BILATERAL FULL FIELD DIGITAL SCREENING MAMMOGRAM WITH [...] Most Recently Relevant to Health Maintenance Insurance [employer] Care Teams Sec Accountant Relationship Specialty Start Date End Date Marilia Merrill MD [address] [place], [place] [phone] PCP - General 08/23/22
[2024-09-15] MEDS: LIDOCAINE 1%-EPI 1:100,000 5 ML INFILTRATI (16:15)
== END 2024-09-15 16:57 | disposition home or self-care (01) ==
PROVIDERS: Emergency Provider Family Medicine
DX: L02.31 Cutaneous abscess of buttock (principal); L03.317 Cellulitis of buttock
CPT/HCPCS: 87070; 87186; 99283; 99284